=== PATIENT | male | born 1965 | race Caucasian/White ===

== ENCOUNTER 2022-10-02 07:29 | Emergency (ER) | payer BC, OTHER, SELFPAY ==
--- NOTE | ~2022-10-02 | CT_ITS ---
EXAMINATION: CT abdomen pelvis w con INDICATION: Abdominal pain TECHNIQUE: Computed tomographic images of the abdomen and pelvis were obtained after the administrati on of 100 cc of Omnipaque 350 intravenous contrast. The dose-length product (DLP) was 928.93 mGy-cm. Automated exposure control and iterative reconstruction technique were employed. COMPARISON: 01/15/2011 FINDINGS: The lung bases are clear. The heart size is normal. The liver is diffusely low in attenuati on when compared with the spleen, consistent with hepatic steatosis. The spleen, pancreas, gallbladde r, and adrenal glands are normal. Hypoattenuating lesions in the left kidney measuring up to 5 mm are too small to characterize but likely represent cysts. The right kidney is unremarkable. No pathologi marlene enlarged abdominal or pelvic lymph nodes are identified. There is formed stool in the terminal ileum. There is a short segment of mildly dilated distal ileum. The remainder of the distal ileum is upper limits of normal in caliber. There is a small amount of fluid in the adjacent mesentery. There is no free intraperitoneal gas. There is a fat-containing left inguinal hernia. There is mild lumbar spondylosis. IMPRESSION: 1. Form stool in the terminal ileum with mild distention of a short segment of distal ileum and remai nder of the distal ileum upper limits of normal in caliber. Finding could reflect ileus. Reviewed, dictated and finalized at location B. RN IMPRESSION: 1. Form stool in the terminal ileum with mild distention of a short segment of distal ileum and remainder of the distal ileum upper limits of normal in calibe r. Finding could reflect ileus.
[2022-10-02 07:29] VITALS: BP 101/65; PULSE 83; RESP 16; TEMP 37; O2SAT 98
--- NOTE | 2022-10-02 07:46 | ED.GENADULT ---
HPI - General Adult General Chief complaint: Abdominal Pain Stated complaint: abdominal pain History of Present Illness HPI narrative: Rio is a 56M with a PMH of HLD and HTN presented to the ED with abdominal pain that started yesterday and has become worse. It is a generalized cramping pain around the umbilicus. He had 2 solid BM today. No diarrhea, nausea, vomiting, chest pain, dyspnea, fevers or chills. 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 Related Data Home Medications Medication Instructions Recorded Confirmed losartan 100 mg tablet 100 mg DAILY 10/02/22 10/02/22 Allergies Allergy/AdvReac Type Severity Reaction Status Date / Time No Known Allergies Allergy Mild Verified 10/02/22 07:44 Review of Systems Review of Systems: All systems reviewed & are unremarkable except as noted in HPI and below Exam Const: General: healthy appearing and no acute distress Nutritional Appearance: well nourished Orientation/consciousness: patient oriented x3 HENMT: Head: normal to inspection Ears: external ears normal Face/Nose/Sinus: Normal external nose present Eyes: Conjunctivae: conjunctivae normal Pupils: Equal, round and reactive pupils present EOM: EOMs intact bilaterally Neck: Neck: normal visual inspection Chest: Chest palpation & inspection: normal inspection of the chest Resp: Effort & Inspection: normal respiratory effort Auscultation: clear to auscultation bilaterally Cardio: Rate: regular rate Rhythm: regular rhythm GI: Inspection: non-distended GI Palp: Yes Soft to palpation, Yes Tenderness to palpation present (GI) (TtP in the right upper quadrant ) and No Guarding due to palpation present (GI) Auscultation: normal bowel sounds Skin: General skin exam: normal color Rashes: no rashes Neuro: General: patient oriented x3 and moves all extremities Cranial nerves: Yes Nystagmus not present Extrem: General: normal to inspection Psych: Mental Status: mental status grossly normal Course Course Emergency Course: Ordered fluids, morphine, labs EXAMINATION: CT abdomen pelvis w con INDICATION: Abdominal pain TECHNIQUE: Computed tomographic images of the abdomen and pelvis were obtained after the administration of 100 cc of Omnipaque 350 intravenous contrast. The dose-length product (DLP) was 928.93 mGy-cm. Automated exposure control and iterative reconstruction technique were employed. COMPARISON: 01/15/2011 FINDINGS: The lung bases are clear. The heart size is normal. The liver is diffusely low in attenuation when compared with the spleen, consistent with hepatic steatosis. The spleen, pancreas, gallbladder, and adrenal glands are normal. Hypoattenuating lesions in the left kidney measuring up to 5 mm are too small to characterize but likely represent cysts. The right kidney is unremarkable. No pathologically enlarged abdominal or pelvic lymph nodes are identified. There is formed stool in the terminal ileum. There is a short segment of mildly dilated distal ileum. The remainder of the distal ileum is upper limits of normal in caliber. There is a small amount of fluid in the adjacent mesentery. There is no free intraperitoneal gas. There is a fat-containing left inguinal hernia. There is mild lumbar spondylosis. IMPRESSION: 1. Form stool in the terminal ileum with mild distention of a short segment of distal ileum and remainder of the distal ileum upper limits of normal in caliber. Finding could reflect ileus. Given reglan. Discussed return precautions including worsening pain, N/V, fevers chills etc. Vital Signs Vital signs: Vital Signs Temperature 98.6 F 10/02/22 07:29 Pulse Rate 83 10/02/22 07:29 Respiratory Rate 16 10/02/22 07:29 Blood Pressure 101/65 10/02/22 07:29 Pulse Oximetry 98 10/02/22 07:29 Oxygen Delivery Room Air 10/02/22 07:29 Temperature 98.6 F 10/02/22 07:29 Pulse Rate 83 10/02/22 07:29 Respiratory Rate 16 0
[2022-10-02 08:14] LABS: Basophils Absolute Auto 0.05 K/mm3 (0.00-0.10); Basophils Percent Auto 0.5 % (0.0-1.0); Eosinophils Absolute Auto 0.12 K/mm3 (0.02-0.50); Eosinophils Percent Auto 1.2 % (1.0-6.0); Hematocrit 47.5 % (40.0-54.0); Hemoglobin 16.5 g/dL (14.0-18.0); Immature Granulocyte Absolute 0.04 K/mm3 (0.00-0.00); Immature Granulocyte Percent A 0.4 % (0.0-0.0); Lymphocytes Percent Auto 17.2 % (18.0-42.0); Mean Corpuscular HGB Conc 34.7 g/dL (32.0-36.0); Mean Corpuscular Hemoglobin 30.3 pg (27.0-31.0); Mean Corpuscular Volume 87.2 fL (78.0-102.0); Mean Platelet Volume 10.2 fl (8.7-11.0); Monocytes Absolute Auto 0.64 K/mm3 (0.10-0.90); Monocytes Percent Auto 6.5 % (2.0-11.0); Neutrophils Absolute Auto 7.3 K/mm3 (1.7-7.2); Neutrophils Percent Auto 74.2 % (50.0-70.0); Platelet Count Result 186 K/mm3 (150-420); Red Blood Count 5.45 M/mm3 (4.70-6.10); Red Cell Distribution Width 11.9 % (11.6-14.4); White Blood Count 9.9 K/mm3 (4.8-10.8)
[2022-10-02 08:16] LABS: Add Urine Microscopic? YES; Appearance Urine Clear (Clear); Bilirubin Urine Negative (Negative); Blood Urine Negative (Negative); Color Urine Light Yellow (Yellow); Glucose Urine UA 3+ (Negative); Ketones Urine Negative (Negative); Leukocyte Esterase Ur Negative LEU/UL (Negative); Nitrate Urine Negative (Negative); Protein Urine Negative (Negative); Specific Grav Ur 1.015 (1.010-1.020); pH Urine 6.5 (5.0-8.0)
[2022-10-02] MEDS: ACETAMINOPHEN 500 MG TABLET 1000 MG PO (08:18)
[2022-10-02] MEDS: LACTATED RINGERS 1,000 ML 999 ML IV CONT (08:18)
[2022-10-02 08:25] LABS: Bacteria Urine None seen /hpf; RBC Urine None seen /hpf (0-2); WBC Urine None seen /hpf (0-3)
[2022-10-02 08:30] VITALS: BP 115/82; PULSE 72; RESP 18; O2SAT 96
[2022-10-02 08:33] LABS: Alanine Aminotransferase 59 U/L (16-63); Albumin Level 4.5 g/dL (3.4-5.0); Alkaline Phosphatase 73 U/L (46-116); Anion Gap 10 mmol/L (8-16); Aspartate Amino Transferase 25 U/L (15-37); Bilirubin,Total 0.8 mg/dL (0.00-1.00); Blood Urea Nitrogen 19 mg/dL (7-18); Carbon Dioxide 25 mmol/L (21-32); Chloride 98 mmol/L (98-108); Estimated CRCL calculation 81 ml/min; Estimated Glomerular Filt Rate > 60; Glucose 309 mg/dL (70-99); Lipase 37 U/L (16-77); Osmolality Calculated 290 mOsm/kg (285-295); Potassium 3.9 mmol/L (3.5-5.1); Sodium 133 mmol/L (136-145); Total Protein 7.9 g/dL (6.4-8.2)
[2022-10-02 08:36] LABS: Lactic Acid Reflex 1.4 mmol/L (0.4-2.0)
[2022-10-02 08:40] LABS: Prothrombin Time 10.9 Seconds (9.50-12.10)
[2022-10-02 09:30] VITALS: BP 118/84; RESP 18; O2SAT 96
[2022-10-02] MEDS: METOCLOPRAMIDE HCL INJ 10 MG/2 ML VIAL IV PUSH (09:52)
--- NOTE | 2022-10-02 09:56 | PC.NURSE ---
Pt states pain is better without movement, states if he pushes on his abdomen it gets worse, pain only 3/10 at this time, pt resting on stretcher.
[2022-10-02 10:35] VITALS: BP 138/89; PULSE 112; RESP 16; TEMP 36.8; O2SAT 98
== END 2022-10-02 10:41 | disposition home or self-care (01) ==
PROVIDERS: Emergency Provider Family Medicine
DX: R10.9 Unspecified abdominal pain (principal); K40.90 Unilateral inguinal hernia, without obstruction or gangrene, not specified as recurrent; R73.9 Hyperglycemia, unspecified; I10 Essential (primary) hypertension
CPT/HCPCS: 36415; 74177; 80053; 81001; 83605; 83690; 85025; 85610; 96361; 96374; 99284; J2765; J7120; Q9967

== ENCOUNTER 2025-03-08 07:30 | Observation (INO) | payer BC, OTHER, SELFPAY ==
[2025-03-08] VITALS (9 sets, daily range): BP systolic 115–123; BP diastolic 65–99; PULSE 72–93; RESP 15–20; TEMP 36.3–36.6; O2SAT 96–100; BMI 27.6
--- NOTE | ~2025-03-08 | CT_ITS ---
CT of the Abdomen and Pelvis: Indication: Abdominal pain Technique: 2.5 mm axial scans were obtained through the abdomen and pelvis following intravenous adm inistration of 100 cc of Omnipaque 350. Dose reduction technique was used on this scan by utilizing a utomated exposure control and iterative reconstruction technique. The dose-length product (DLP) was 4 67.95 mGy-cm. COMPARISON: 10/02/2022 Findings: Scans through the lung bases are unremarkable. The liver, spleen, pancreas, gallbladder, adrenals and kidneys are within normal limits. No evidence of aortic aneurysm. No lymphadenopathy. No bowel obstruction or bowel wall thickening. There is no evidence to suggest acute appendicitis. Images through the pelvis were performed. Urinary bladder unremarkable. No pelvic mass seen. No ascit es. Impression: No significant abnormalities seen. Reviewed, dictated and finalized at [facility]. Impression: No significant abnormalities seen.
--- OUTSIDE RECORDS SUMMARY | 2025-03-08 07:33 | XMS_ITS | Encounter Summary ---
Author Name [facility] [place] Address [address] [place] [address] Care Team Providers Care Charging Operator Name Role Phone SONALI SAMUELS Primary Care Provider Unavail able Insurance Providers: All historical and current Section Date Range: From patient's date of to the date document was created. This section includes the names of all active insurance providers for the patient. Insurance Provider Type of Coverage Plan Name Start of Policy Coverage End of Policy Coverage Group Number Member ID Insurance Provider's Telephone Number Policy Tan's Name Patient's Relationship to Policy Tan [employer] [place] PREFERRED PROVIDER ORGANIZAT [place]ON (PPO) [facility] ERS Jun 22, 2006 [id number] [phone] MARYELLEN ROBERTSON PATIENT [employer] [place] PREFERRED PROVIDER ORGANIZAT ION (PPO) [facility] E[facility] Jun 22, 2006 [id number] [phone] MARYELLEN ROBERTSON PATIENT [employer] [place] PREFERRED PROVIDER ORGANIZAT ION (PPO) [facility] PAINT Jun 22, 2006 [id number] [phone] MARYELLEN ROBERTSON PATIENT [employer] [place] PREFERRED PROVIDER ORGANIZAT ION (PPO) [place] Jun 22, 2006 [id number] [phone] MARYELLEN ROBERTSON PATIENT [place] PREFERRED PROVIDER [place]GANIZ[place] Jun 22, 2006 [id number] [phone] MARYELLEN ROBERTSON PATIENT [facility] [employer] PRES[employer] I[employer] RX PLAN Sep 22, 2018 [facility] [id number] [phone] MARYELLEN ROBERTSON PATIENT [employer] RX PLAN Sep 22, 2018 [id number] [phone] MARYELLEN ROBERTSON Octavio PATIENT Selected Encounter This section includes the information on record at [place] for the Encounter. Date/Time Encounter Type Encounter Description Reason Pro vider Source May 05, 2024 10:45 AM Outpatient Encounter GENERAL INTERNAL MEDICINE [facility] Encounter Template Text not used by [place] Plan of Treatment: Future Appointments (+ 6 months) and Future Tests (+/- 45 days) The Plan of Treatment section includes future care activities for the patient from all [place] treatmentfacilities. This section includes future appointments and future orders which are active, pending or scheduled. Future Appointments This section includes appointments that were scheduled to occur 6 months from the date of the Encounter, up to a maximum of 20 appointments. The data comes from all [place] treatment facilities. Appointment Date/Time Appointment Type Appointme nt Facility Name May 12, 2024 10:20 AM AMBULATORY - NONE [facility] Jun 21, 2024 11:00 AM AM[facility]UL[facility]ORY - MEDICINE [facility] Jul 28, 2024 10:30 AM AMBULATORY - MEDICINE [facility] Aug 09, 2024 11:00 AM AM[facility]UL[facility]ORY - [facility] Aug 24, 2024 09:00 AM [facility]ORY [facility]RY [facility] Oct 04, 2024 09:00 AM AM[facility]ATORY - [facility]RY [facility] Oct 14, 2024 09:00 AM [facility]ATORY - [facility]RY [facility] Oct 21, 2024 09:00 AM [facility]ORY - [facility]RY [facility] Active, Pending, and Scheduled Orders This section includes a listing of several types of active, pending, and scheduled orders, including clinic medications orders, diagnostic test orders, procedure orders and consult orders; where the start date of the order is 45 days before the date of the Encounter or 45 days after the date of theEncounter. The data comes from all [place] treatment facilities. Test Date/Time Test Type Test Details Facility Name May 05, 2024 05:01 PM Consult Order [facility] DENTAL SPEC Cons Extractor Filler's Choice [facility] Jun 10, 2024 12:00 AM Laboratory - Chemi stry Order [id number] BLOOD SP [facility] Jun 10, 2024 12:00 AM Laboratory - Chemi stry Order BASIC METABOLIC PANEL GREEN LI/HEP BLD/PLAS PLASMA SP [facility] Encounter Notes: All associated encounter notes This section contains the clinical notes associated to the Encounter. Date/Time Encounter Note(s) Provider Source May 05, 2024 10:45 AM NONVA NOTE: LOCAL TITLE: [facility]ITY [facility]-CARE COORDINATION PLAN NOTE [address] TITLE: NONVA NOTE DATE OF NOTE: MAY 05, 2024@10:45 ENTRY DATE: MAY 05, 2024@10:45:17 AUTHOR: DON KNAPP EXP COSIGNER: URGENCY: STATUS: COMPLETED [place] called to see if a referral was entered for Glendy montez after his most recent appt 04/28 @0900. Word Processing Operator advised there is not. stated Glendy moapa sent an email & D[facility] team confirmed that they will submit it & the the [place] [facility] clinic will have to review and either approve or deny, if approved we complete the consult and send to [facility] provider. he can call back on Friday for an update. Caller stated understanding. /lolita/ DON KNAPP [employer]VANCED FITNESS AND WELLNESS INSTRUCTOR Signed: 05/05/2024 11:24 DON KNAPP [facility]
--- OUTSIDE RECORDS SUMMARY | 2025-03-08 07:33 | XMS_ITS | Continuity of Care Document ---
Author Name [facility] Organization [facility] Care Team Providers Care Senior Research Engineer Name Role Phone [facility] Unavailable Unavailable Problems Combined list of problems from Department of Defense and [facility] Affairs facilities. It does not include entries that were removed or entered in error. Problem Status Onset Date Problem Type Date of Resolution Comments Source Binge drinker Active Condition [facility] Dermatitis * (ICD-9-CM 692.9) Active Condition [facility] Diabetes Mellitus Type 2 ([facility] [id number]) Active Condition [facility] Exposure to potentially hazardous substance Active Condition [facility] HTN - Hypertension ([facility] [id number]) Active Condition [facility] Hyperlipidemia Active Condition [facility] Impaired Fasting Glucose ([facility] [id number]) Active Condition [facility] Insomnia Active Condition [facility] Knee pain Active Condition [facility] Liver Function Tests Abnormal ([facility] [id number]) Active Condition [facility] Low back pain Active Condition [facility] Marital problems Active Condition [facility] Sleep apnea Active Condition [facility] Hyperglycemia Inactive Condition 10/06/2019 [facility] Hypertension Inactive Condition 10/06/2019 [facility] Low Back Pain * (ICD-9-CM 724.2) Inactive Condition 10/06/2019 [facility] Obesity Inactive Condition 10/06/2019 [facility] Pain in Joint, site unspecified (ICD-9-CM 719.40) Inactive Condition 10/06/2019 [facility] Diagnosis: ICD-10-CM Z63.0 Problems in relationship with spouse or partner Active Diagnosis [facility] Diagnosis: ICD-10-CM F32.A Depression, unspecified Active Diagnosis [facility] Diagnosis: ICD-10-CM F33.1 Major depressive disorder, recurrent, moderate Active Diagnosis [facility] Diagnosis: ICD-10-CM I10 Essential (primary) hypertension Active Diagnosis [facility] Diagnosis: ICD-10-CM E11.9 Type 2 diabetes mellitus without complications Active Diagnosis [facility] Diagnosis: ICD-10-CM H04.123 Dry eye syndrome of bilateral lacrimal glands Active Diagnosis [facility] Diagnosis: ICD-10-CM Z01.20 Encounter for dental exam and cleaning w/o abnormal findings Active Diagnosis [facility] Diagnosis: ICD-10-CM Z13.5 Encounter for screening for eye and ear disorders Active Diagnosis [facility] Medications Combined list of outpatient medications from Department of Defense and [facility] Affairs facilities.Medications provided include 1) outpatient medications from the last 15 months, and 2) patient-reported medications. Medication Details Route Status Patient Instructions Prescription Expires Prescription Number Last Dispense Date Ordering Provider Order Date Order Qty Source amLODIPine (U/D) 10 MG ORAL TAB TAKE ONE TABLET BY MOUTH ONCE A DAY FOR HEART/BL OOD PRESSURE 02/03/2025 [id number] 4 MARC GONZALEZ 2023 90 [facility] AMLODIPINE BESYLATE 10MG TAB TAKE ONE TABLET BY MOUTH ONCE A DAY FOR HEART/BL OOD PRESSURE ORAL ACTIVE 04/10/2025 [id number] 5 MARC GONZALEZ 2024 90 [facility] AMLODIPINE BESYLATE 10MG TAB TAKE ONE TABLET BY MOUTH ONCE A DAY FOR HEART/BL OOD PRESSURE ORAL DISCONT INUED 11/01/2024 [id number] 4 MARC GONZALEZ 2023 90 [facility] AMLODIPINE BESYLATE 10MG TAB TAKE ONE TABLET BY MOUTH ONCE A DAY FOR HEART/BL OOD PRESSURE ORAL DISCONT INUED 02/03/2025 [id number] 4 MARC GONZALEZ 2023 90 [facility] AMLODIPINE BESYLATE 10MG TAB TAKE ONE TABLET BY MOUTH ONCE A DAY FOR HEART/BL OOD PRESSURE ORAL DISCONT INUED 09/08/2024 [id number] 4 MARC GONZALEZ 2022 90 [facility] ASPIRIN 81MG TAB,EC TAKE ONE TABLET BY MOUTH ONCE A DAY ORAL ACTIVE MARC GONZALEZ 2020 [facility] carboxymeth ylcel 0.5% EYE DROP [2 X15ML] INSTILL 1 DROP IN BOTH EYES FOUR TIMES A DAY NEEDED Active 03/12/2025 [id number] 4 BHASKAR ALANIZ [facility] 2023 45 [facility] CARBOXYMETH YLCELLULOSE NA 0.5% SOLN,OPH INSTILL 1 DROP IN BOTH EYES FOUR TIMES A DAY NEEDED OPHTHA LMIC ACTIVE 03/12/2025 [id number] 5 CANDI ALANIZ [facility] 2024 30 [facility] CARBOXYMETH YLCELLULOSE NA 0.5% SOLN,OPH INSTILL 1 DROP IN BOTH EYES FOUR TIMES A DAY NEEDED OPHTHA LMIC DISCONT INUED 03/12/2025 [id number] 5 CANDI ALANIZ [facility] 2023 30 [facility] CARBOXYMETH YLCELLULOSE NA 0.5% SOLN,OPH INSTILL 1 DROP IN BOTH EYES FOUR TIMES A DAY NEEDED OPHTHA LMIC DISCONT INUED 03/12/2025 [id number] 4 CANDI ALANIZ [facility] 2023 45 [facility] EMPAGLIFLOZ IN 25MG TAB TAKE ONE-HALF TABLET BY MOUTH ONCE A DAY FOR DIABETES ORAL ACTIVE 12/14/2025 [id number] 5 MARC GONZALEZ 2024 30 [facility] EMPAGLIFLOZ IN 25MG TAB TAKE ONE-HALF TABLET BY MOUTH ONCE A DAY FOR DIABETES ORAL DISCONT INUED 09/04/2025 [id number] 5 MARC GONZALEZ 2023 30 [facility] EMPAGLIFLOZ IN 25MG TAB TAKE ONE-HALF TABLET BY MOUTH ONCE A DAY FOR DIABETES ORAL DISCONT INUED 05/05/2025 [id number] 4 Yazan TELLO E 2023 30 [facility] EMPAGLIFLOZ IN 25MG TAB TAKE ONE-HALF TABLET BY MOUTH ONCE A DAY FOR DIABETES ORAL DISCONT INUED (EDIT) 04/07/2025 [id number] 4 Yazan TELLO E 2023 15 [facility] EPINEPHRINE (EQV-ADRENA CLICK) 0.3MG/0.3ML INJECTOR INJECT 1 PEN (0.3MG/0 .3ML) INTRAMUS CULARLY ONE-TIME FOR ALLERGIC REACTION INTRAM USCULA R 02/03/2025 [id number] 4 [facility] Epinephrine 1mg/mL, Injection, 0.3 mL Auto-Inject or INJECT 1 PEN (0.3MG/0 .3ML) INTRAMUS CULARLY ONE-TIME FOR ALLERGIC REACTION 02/03/2025 [id number] 4 MARC GONZALEZ 2023 2 [facility] FISH OIL 1000MG (500MG DHA/EPA) CAP,ORAL TAKE 1 CAPSULE BY MOUTH ONCE A DAY ORAL ACTIVE GUERDA MÉNDEZ 2023 [facility] Hydrochloro thiazide 12.5mg + Losartan 100mg, Tablet, Oral TAKE 1 TABLET BY MOUTH EVERY MORNING TO LOWER BLOOD PRESSURE 09/08/2024 [id number] 4 MARC GONZALEZ 2023 90 [facility] HYDROCHLORO THIAZIDE 12.5MG/LOSA RTAN POTASSIUM 100MG TAB TAKE 1 TABLET BY MOUTH EVERY MORNING TO LOWER BLOOD PRESSURE ORAL ACTIVE 10/26/2025 [id number] 5 MARC GONZALEZ 2024 90 [facility] HYDROCHLORO THIAZIDE 12.5MG/LOSA RTAN POTASSIUM 100MG TAB TAKE 1 TABLET BY MOUTH EVERY MORNING TO LOWER BLOOD PRESSURE ORAL DISCONT INUED 10/26/2025 [id number] 5 MARC GONZALEZ 2024 90 [facility] HYDROCHLORO THIAZIDE 12.5MG/LOSA RTAN POTASSIUM 100MG TAB TAKE 1 TABLET BY MOUTH EVERY MORNING TO LOWER BLOOD PRESSURE ORAL DISCONT INUED 09/08/2024 [id number] 4 MARC GONZALEZ 2023 90 [facility] METFORMIN HCL 1000MG TAB TAKE ONE TABLET BY MOUTH TWICE A DAY TAKE WITH FOOD. AVOID ALCOHOL. DISCONTI NUE BEFORE GETTING XRAY DYE. ORAL ACTIVE 01/05/2026 [id number] 5 MARC GONZALEZ 2024 180 [facility] METFORMIN HCL 1000MG TAB TAKE ONE TABLET BY MOUTH TWICE A DAY TAKE WITH FOOD. AVOID ALCOHOL. DISCONTI NUE BEFORE GETTING XRAY DYE. ORAL DISCONT INUED 07/28/2025 [id number] 5 MARC GONZALEZ 2023 180 [facility] METFORMIN HCL 1000MG TAB TAKE ONE TABLET BY MOUTH TWICE A DAY TAKE WITH FOOD. AVOID ALCOHOL. DISCONTI NUE BEFORE GETTING XRAY DYE. ORAL DISCONT INUED 02/03/2025 [id number] 4 MARC GONZALEZ 2023 180 [facility] METFORMIN HCL 1000MG TAB TAKE ONE-HALF TABLET BY MOUTH EVERY MORNING AND TAKE ONE TABLET EVERY EVENING FOR DIABETES TAKE WITH FOOD. AVOID ALCOHOL. DISCONTI NUE BEFORE GETTING XRAY DYE. ORAL DISCONT INUED (EDIT) 12/17/2024 [id number] 4 MARC GONZALEZ 2023 135 [facility] METFORMIN HCL 1000MG TAB TAKE ONE-HALF TABLET BY MOUTH EVERY MORNING AND TAKE ONE TABLET EVERY EVENING FOR DIABETES TAKE WITH FOOD. AVOID ALCOHOL. DISCONTI NUE BEFORE GETTING XRAY DYE. ORAL DISCONT INUED 12/17/2024 [id number] 4 MARC GONZALEZ 2023 135 [facility] Metformin Hydrochlori de Tablet Extended Release 1,000 mg Oral TAKE ONE TABLET BY MOUTH TWICE A DAY TAKE WITH FOOD. AVOID ALCOHOL. DISCONTI NUE BEFORE GETTING XRAY DYE. 02/03/2025 [id number] 4 MARC GONZALEZ 2023 180 [facility] calista Metformin Hydrochlori de Tablet Extended Release 1,000 mg Oral TAKE ONE-HALF TABLET BY MOUTH EVERY MORNING AND TAKE ONE TABLET EVERY EVENING FOR DIABETES TAKE WITH FOOD. AVOID ALCOHOL. DISCONTI NUE BEFORE GETTING XRAY DYE. Discont inued 12/17/2024 [id number] 4 MARC GONZALEZ 2023 135 [facility] calista Metformin Hydrochlori de Tablet Extended Release 1,000 mg Oral TAKE ONE-HALF TABLET BY MOUTH EVERY MORNING AND TAKE ONE TABLET EVERY EVENING FOR DIABETES TAKE WITH FOOD. AVOID ALCOHOL. DISCONTI NUE BEFORE GETTING XRAY DYE. 12/17/2024 [id number] 4 MARC GONZALEZ 2023 135 [facility] Metformin Hydrochlori de Tablet Extended Release 1,000 mg Oral TAKE ONE-HALF TABLET BY MOUTH EVERY MORNING AND TAKE ONE TABLET EVERY EVENING FOR DIABETES TAKE WITH FOOD. AVOID ALCOHOL. DISCONTI NUE BEFORE GETTING XRAY DYE. Discont inued 12/17/2024 [id number] 4 MARC GONZALEZ 2023 135 [facility] calista Metformin Hydrochlori de Tablet Extended Release 1,000 mg Oral TAKE ONE-HALF TABLET BY MOUTH EVERY MORNING AND TAKE ONE TABLET EVERY EVENING FOR DIABETES TAKE WITH FOOD. AVOID ALCOHOL. DISCONTI NUE BEFORE GETTING XRAY DYE. 12/17/2024 [id number] 4 MARC GONZALEZ 2023 135 [facility] calista MULTIVITAMI NS CAP/TAB TAKE ONE TABLET BY MOUTH ONCE A DAY ORAL ACTIVE GUERDA MÉNDEZ 2023 [facility] PRAVASTATIN 40 MG ORAL TAB TAKE ONE-HALF TABLET BY MOUTH EVERY EVENING TO LOWER CHOLESTE ROL 02/03/2025 [id number] 4 MARC GONZALEZ 2023 45 [facility] n PRAVASTATIN NA 40MG TAB TAKE ONE-HALF TABLET BY MOUTH EVERY EVENING TO LOWER CHOLESTE ROL ORAL ACTIVE 05/05/2025 [id number] 5 MARC GONZALEZ 2024 45 [facility] PRAVASTATIN NA 40MG TAB TAKE ONE-HALF TABLET BY MOUTH EVERY EVENING TO LOWER CHOLESTE ROL ORAL DISCONT INUED 02/07/2025 [id number] 5 MARC GONZALEZ 2024 45 [facility] PRAVASTATIN NA 40MG TAB TAKE ONE-HALF TABLET BY MOUTH EVERY EVENING TO LOWER CHOLESTE ROL ORAL DISCONT INUED 11/13/2024 [id number] 4 MARC GONZALEZ 2023 45 [facility] PRAVASTATIN NA 40MG TAB TAKE ONE-HALF TABLET BY MOUTH EVERY EVENING TO LOWER CHOLESTE ROL ORAL DISCONT INUED 02/03/2025 [id number] 4 MARC GONZALEZ 2023 45 [facility] PRAVASTATIN NA 40MG TAB TAKE ONE-HALF TABLET BY MOUTH EVERY EVENING TO LOWER CHOLESTE ROL ORAL DISCONT INUED 09/08/2024 [id number] 4 MARC GONZALEZ 2023 45 [facility] Allergies, Adverse Reactions, Alerts Combined list of allergies from Department of [facility] and [facility] facilities. It does not include entries that were removed or entered in error. Substance Category Reaction Severity Reaction type Status Date Reported Comments Source ATORVASTATIN Drug allergy (disorder) Myalgias active [address] [facility] ATORVASTATIN Propensity to adverse reactions to drug (finding) Muscle pain active 9 [facility] BEE STINGS Propensity to adverse reaction (finding) active 7 [facility] Immunizations Combined list of available immunizations from the Department of [facility] and [facility] facilities. 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 of [facility] and [facility], ranging from 15 months to all on record, depending upon the facility. Order Name Results Value Reference Range Date Interpretation Specimen Comments Source MICRAL/CR EAT PROFILE (STL) ALBUMIN [MASS/VOLUM E] IN URINE 21 mg/L 08/06 Specimen Type: URINE No comment entered. Ordering Provider: ALDEN MÉNDEZ Report Released Date/Time: Jul 28, 2024 11:25 AM Reporting Lab: [facility] [place] [phone] Performing Lab: [facility] DIVISION MICRAL/CR EAT PROFILE (STL) ALBUMIN/CRE ATININE [MASS RATIO] IN URINE 17 mg/g 0 - 29 08/06 Specimen Type: URINE No comment entered. Ordering Provider: ALDEN MÉNDEZ Report Released Date/Time: Jul 28, 2024 11:25 AM Reporting Lab: [facility] [place] [id number] Performing Lab: [facility] DIVISION MICRAL/CR EAT PROFILE (STL) CREATININE [MASS/VOLUM E] IN URINE 121.5 mg/dL 63.0 - 166.0 08/06 Specimen Type: URINE No comment entered. Ordering Provider: ALDEN MÉNDEZ Report Released Date/Time: Jul 28, 2024 11:25 AM Reporting Lab: [facility] [place] [address] Performing Lab: [facility] DIVISION B12 COBALAMIN (VITAMIN B12) [MASS/VOLUM E] IN SERUM OR PLASMA 467 pg/mL 213 - 816 08/06 Specimen Type: SERUM No comment entered. Ordering Provider: ALDEN MÉNDEZ Report Released Date/Time: Jul 28, 2024 10:46 AM Reporting Lab: [facility] [place] [address] Performing Lab: [facility] DIVISION FERRITIN FERRITIN [MASS/VOLUM E] IN SERUM OR PLASMA 40.52 ng/mL 22 - 275 08/06 Specimen Type: SERUM No comment entered. Ordering Provider: ALDEN MÉNDEZ Report Released Date/Time: Jul 28, 2024 11:05 AM Reporting Lab: [facility] [address] [facility] [phone] Performing Lab: [facility] [address] [place] [phone] [facility] IRON/TIBC PROFILE IRON BINDING CAPACITY [MASS/VOLUM E] IN SERUM OR PLASMA 449 ug/dL 250 - 450 08/06 Specimen Type: SERUM No comment entered. Ordering Provider: ALDEN MÉNDEZ Report Released Date/Time: Jul 28, 2024 11:05 AM Reporting Lab: [address] [phone] Performing Lab: [address] [phone] [facility] IRON/TIBC PROFILE TRANSFERRIN [MASS/VOLUM E] IN SERUM OR PLASMA 359 mg/dL 163 - 344 08/06 H Specimen Type: SERUM No comment entered. Ordering Provider: ALDEN MÉNDEZ Report Released Date/Time: Jul 28, 2024 11:05 AM Reporting Lab: [address] [phone] Performing Lab: [address] [phone] [facility] IRON/TIBC PROFILE IRON SATURATION [MASS FRACTION] IN SERUM OR PLASMA 33 20 - 50 08/06 Specimen Type: SERUM No comment entered. Ordering Provider: ALDEN MÉNDEZ Report Released Date/Time: Jul 28, 2024 11:05 AM Reporting Lab: [place] [address] [facility] [phone] Performing Lab: [address] [address] [facility] IRON/TIBC PROFILE IRON [MASS/VOLUM E] IN SERUM OR PLASMA 148 ug/dL 65 - 175 08/06 Specimen Type: SERUM No comment entered. Ordering Provider: ALDEN MÉNDEZ Report Released Date/Time: Jul 28, 2024 11:05 AM Reporting Lab: [facility] [address] [facility] [phone] Performing Lab: [facility] [address] [place] [id number] TSH W/ REFLEX FT4 (STL) THYROTROPIN [UNITS/VOLU ME] IN SERUM OR PLASMA 0.286 u[IU]/ mL 0.470 - 5.000 08/06 L Specimen Type: PLASMA No comment entered. Ordering Provider: ALDEN MÉNDEZ Report Released Date/Time: Jul 28, 2024 10:46 AM Reporting Lab: [facility] [place] [address] Performing Lab: [facility] DIVISION TSH W/ REFLEX FT4 (STL) FREE T4(REFLEX) 1.09 ng/mL 0.70 - 1.48 08/06 Specimen Type: PLASMA No comment entered. Ordering Provider: ALDEN MÉNDEZ Report Released Date/Time: Jul 28, 2024 10:46 AM Reporting Lab: [facility] [place] [address] Performing Lab: [facility] DIVISION CBC LEUKOCYTES [#/VOLUME] IN BLOOD BY AUTOMATED COUNT 5.2 10*3/u L 3.6 - 11.2 08/06 Specimen Type: BLOOD No comment entered. Ordering Provider: ALDEN MÉNDEZ Report Released Date/Time: Jul 28, 2024 11:05 AM Reporting Lab: [facility] [place] [address] Performing Lab: [facility] DIVISION CBC ERYTHROCYTE S [#/VOLUME] IN BLOOD BY AUTOMATED COUNT 5.86 10*6/u L 4.10 - 5.70 08/06 H Specimen Type: BLOOD No comment entered. Ordering Provider: ALDEN MÉNDEZ Report Released Date/Time: Jul 28, 2024 11:05 AM Reporting Lab: [facility] [place] [address] Performing Lab: [facility] CBC HEMOGLOBIN [MASS/VOLUM E] IN BLOOD 17.8 g/dL 13.1 - 16.8 08/06 H Specimen Type: BLOOD No comment entered. Ordering Provider: ALDEN MÉNDEZ Report Released Date/Time: Jul 28, 2024 11:05 AM Reporting Lab: [facility] [place] [address] Performing Lab: [facility] CBC HEMATOCRIT [VOLUME FRACTION] OF BLOOD 50.9 38.2 - 48.4 08/06 H Specimen Type: BLOOD No comment entered. Ordering Provider: ALDEN MÉNDEZ Report Released Date/Time: Jul 28, 2024 11:05 AM Reporting Lab: [facility] [place] [address] Performing Lab: [facility] CBC MCV [ENTITIC VOLUME] BY AUTOMATED COUNT 86.9 fL 80.0 - 100.0 08/06 Specimen Type: BLOOD No comment entered. Ordering Provider: ALDEN MÉNDEZ Report Released Date/Time: Jul 28, 2024 11:05 AM Reporting Lab: [facility] [place] [address] Performing Lab: [facility] CBC MCH [ENTITIC MASS] BY AUTOMATED COUNT 30.4 pg 27.0 - 34.0 08/06 Specimen Type: BLOOD No comment entered. Ordering Provider: ALDEN MÉNDEZ Report Released Date/Time: Jul 28, 2024 11:05 AM Reporting Lab: [facility] [place] [address] Performing Lab: [facility] CBC MCHC [MASS/VOLUM E] BY AUTOMATED COUNT 35.0 g/dL 33.0 - 36.0 08/06 Specimen Type: BLOOD No comment entered. Ordering Provider: ALDEN MÉNDEZ Report Released Date/Time: Jul 28, 2024 11:05 AM Reporting Lab: [facility] [place] [address] Performing Lab: [facility] CBC PLATELETS [#/VOLUME] IN BLOOD BY AUTOMATED COUNT 220 10*3/u L 150 - 400 08/06 Specimen Type: BLOOD No comment entered. Ordering Provider: ALDEN MÉNDEZ Report Released Date/Time: Jul 28, 2024 11:05 AM Reporting Lab: [facility] [place] [address] Performing Lab: [facility] CBC PLATELET MEAN VOLUME [ENTITIC VOLUME] IN BLOOD BY AUTOMATED COUNT 9.7 fL 7.5 - 11.2 08/06 Specimen Type: BLOOD No comment entered. Ordering Provider: ALDEN MÉNDEZ Report Released Date/Time: Jul 28, 2024 11:05 AM Reporting Lab: [facility] [place] [address] Performing Lab: [facility] [place] [address] [facility] CBC ERYTHROCYTE DISTRIBUTIO N WIDTH [RATIO] BY AUTOMATED COUNT 11.9 11.8 - 15.1 08/06 Specimen Type: BLOOD No comment entered. Ordering Provider: ALDEN MÉNDEZ Report Released Date/Time: Jul 28, 2024 11:05 AM Reporting Lab: [facility] [place] [address] Performing Lab: [facility] DIVISION CBC LYMPHOCYTES /100 LEUKOCYTES IN BLOOD BY AUTOMATED COUNT 37 08/06 Specimen Type: BLOOD No comment entered. Ordering Provider: ALDEN MÉNDEZ Report Released Date/Time: Jul 28, 2024 11:05 AM Reporting Lab: [facility] [place] [address] Performing Lab: [facility] DIVISION CBC MONOCYTES/1 00 LEUKOCYTES IN BLOOD BY AUTOMATED COUNT 8 08/06 Specimen Type: BLOOD No comment entered. Ordering Provider: ALDEN MÉNDEZ Report Released Date/Time: Jul 28, 2024 11:05 AM Reporting Lab: [facility] [place] [address] Performing Lab: [facility] DIVISION CBC NEUTROPHILS /100 LEUKOCYTES IN BLOOD BY AUTOMATED COUNT 51 08/06 Specimen Type: BLOOD No comment entered. Ordering Provider: ALDEN MÉNDEZ Report Released Date/Time: Jul 28, 2024 11:05 AM Reporting Lab: [facility] [place] [address] Performing Lab: [facility] DIVISION CBC EOSINOPHILS /100 LEUKOCYTES IN BLOOD BY AUTOMATED COUNT 3 08/06 Specimen Type: BLOOD No comment entered. Ordering Provider: ALDEN MÉNDEZ Report Released Date/Time: Jul 28, 2024 11:05 AM Reporting Lab: [facility] [place] [address] Performing Lab: [facility] DIVISION CBC BASOPHILS/1 00 LEUKOCYTES IN BLOOD BY AUTOMATED COUNT 1 08/06 Specimen Type: BLOOD No comment entered. Ordering Provider: ALDEN MÉNDEZ Report Released Date/Time: Jul 28, 2024 11:05 AM Reporting Lab: [facility] [place] [address] Performing Lab: [facility] DIVISION CBC LYMPHOCYTES [#/VOLUME] IN BLOOD BY AUTOMATED COUNT 1.92 10*3/u L 0.77 - 4.50 08/06 Specimen Type: BLOOD No comment entered. Ordering Provider: ALDEN MÉNDEZ Report Released Date/Time: Jul 28, 2024 11:05 AM Reporting Lab: [facility] [place] [address] Performing Lab: [facility] DIVISION CBC MONOCYTES [#/VOLUME] IN BLOOD BY AUTOMATED COUNT 0.43 10*3/u L 0.19 - 0.80 08/06 Specimen Type: BLOOD No comment entered. Ordering Provider: ALDEN MÉNDEZ Report Released Date/Time: Jul 28, 2024 11:05 AM Reporting Lab: [facility] [place] [address] Performing Lab: [facility] DIVISION CBC NEUTROPHILS [#/VOLUME] IN BLOOD BY AUTOMATED COUNT 2.67 10*3/u L 2.10 - 8.00 08/06 Specimen Type: BLOOD No comment entered. Ordering Provider: ALDEN MÉNDEZ Report Released Date/Time: Jul 28, 2024 11:05 AM Reporting Lab: [facility] [place] [address] Performing Lab: [facility] CBC EOSINOPHILS [#/VOLUME] IN BLOOD BY AUTOMATED COUNT 0.16 10*3/u L 0.00 - 0.60 08/06 Specimen Type: BLOOD No comment entered. Ordering Provider: ALDEN MÉNDEZ Report Released Date/Time: Jul 28, 2024 11:05 AM Reporting Lab: [facility] [place] [id number] Performing Lab: [facility] [address] CBC BASOPHILS [#/VOLUME] IN BLOOD BY AUTOMATED COUNT 0.05 10*3/u L 0.00 - 0.20 08/06 Specimen Type: BLOOD No comment entered. Ordering Provider: ALDEN MÉNDEZ Report Released Date/Time: Jul 28, 2024 11:05 AM Reporting Lab: [facility] [place] [address] Performing Lab: [address] TESTOSTER ONE, FREE PANEL TESTOSTERON E [MASS/VOLUM E] IN SERUM OR PLASMA 547 ng/dL 250 - 1100 08/06 Specimen Type: SERUM Comment: For additional information , please refer to http://educ ation.Intiza .com/faq/ TotalTestos teroneLCMSM [id number] (This link is being provided for information al/ educational purposes only.) This test was developed and its analytical performance characteris tics have been determined by [employer] [place], [place]. It has not been cleared or approved by the U.S. Food and Drug Administrat ion. This assay has been validated pursuant to the CLIA regulations and is used for clinical purposes. Test Performed by [facility] [place], [address] [place] [address] Luis Miguel Ng M.D., Ph.D., Director of Laboratorie s , CLIA [id number] Ordering Provider: ALDEN MÉNDEZ Report Released Date/Time: Jul 28, 2024 10:46 AM Reporting Lab: [address] [address] Performing Lab: [address] [facility] TESTOSTER ONE, FREE PANEL ALBUMIN [MASS/VOLUM E] IN SERUM OR PLASMA 5.0 g/dL 3.6 - 5.1 08/06 Specimen Type: SERUM Comment: For additional information , please refer to http://educ ation.Intiza .Evoleen/faq/ TotalTestos teroneLCMSM [id number] (This link is being provided for information al/ educational purposes only.) This test was developed and its analytical performance characteris tics have been determined by [employer] [place], [place]. It has not been cleared or approved by the U.S. Food and Drug Administrat ion. This assay has been validated pursuant to the CLIA regulations and is used for clinical purposes. Test Performed by [facility] [employer] [place], [address] [place] [address] Luis Miguel Ng M.D., Ph.D., Director of Laboratorie s , CLIA [id number] Ordering Provider: ALDEN MÉNDEZ Report Released Date/Time: Jul 28, 2024 10:46 AM Reporting Lab: [address] [address] Performing Lab: [address] [facility] TESTOSTER ONE, FREE PANEL TESTOSTERON E FREE [MOLES/VOLU ME] IN SERUM OR PLASMA 74.3 pg/mL 46.0 - 224.0 08/06 Specimen Type: SERUM Comment: For additional information , please refer to http://educ Luminary Micro/faq/ TotalTestos teroneLCMSM [id number] (This link is being provided for information al/ educational purposes only.) This test was developed and its analytical performance characteris tics have been determined by [employer] [place], [place]. It has not been cleared or approved by the U.S. Food and Drug Administrat ion. This assay has been validated pursuant to the CLIA regulations and is used for clinical purposes. Test Performed by [employer] [employer], [address] [place] [address] Luis Miguel Ng M.D., Ph.D., Director of Laboratorie s , CLIA [id number] Ordering Provider: ALDEN MÉNDEZ Report Released Date/Time: Jul 28, 2024 10:46 AM Reporting Lab: [facility] [address] [facility] [address] Performing Lab: [facility] [address] [place] [address] [facility] TESTOSTER ONE, FREE PANEL TESTOSTERON E.FREE+WEAK LY BOUND [MASS/VOLUM E] IN SERUM OR PLASMA 168.9 ng/dL 110.0 - 575.0 08/06 Specimen Type: SERUM Comment: For additional information , please refer to http://educ Campus Job .Evoleen/faq/ TotalTestos teroneLCMSM [id number] (This link is being provided for information al/ educational purposes only.) This test was developed and its analytical performance characteris tics have been determined by [employer] [place], [place]. It has not been cleared or approved by the U.S. Food and Drug Administrat kapturem. This assay has been validated pursuant to the CLIA regulations and is used for clinical purposes. Test Performed by [employer] [employer], [address] [place], [place] Luis Miguel Ng M.D., Ph.D., Director of Laboratorie s , CLIA [id number] Ordering Provider: ALDEN MÉNDEZ Report Released Date/Time: Jul 28, 2024 10:46 AM Reporting Lab: [address] [address] Performing Lab: [address] [facility] TESTOSTER ONE, FREE PANEL SEX HORMONE BINDING GLOBULIN [MOLES/VOLU ME] IN SERUM OR PLASMA 32 nmol/L 22 - 77 08/06 Specimen Type: SERUM Comment: For additional information , please refer to http://educ ation.Intiza .com/faq/ TotalTestos teroneLCMSM [id number] (This link is being provided for information al/ educational purposes only.) This test was developed and its analytical performance characteris tics have been determined by [employer] [place], [place]. It has not been cleared or approved by the U.S. Food and Drug Administrat ion. This assay has been validated pursuant to the CLIA regulations and is used for clinical purposes. Test Performed by [facility], [facility], [address] [place] [address] Luis Miguel Ng M.D., Ph.D., Director of Laboratorie s , CLIA [id number] Ordering Provider: ALDEN MÉNDEZ Report Released Date/Time: Jul 28, 2024 10:46 AM Reporting Lab: [address] [address] Performing Lab: [address] [facility] HGA1C HEMOGLOBIN A1C/HEMOGLO BIN.TOTAL IN BLOOD 5.9 4.0 - 6.0 07/27 Specimen Type: BLOOD No comment entered. Ordering Provider: RITESH TELLO Report Released Date/Time: Jul 27, 2024 08:35 AM Reporting Lab: [facility] [place] [address] Performing Lab: [facility] BASIC METABOLIC PANEL CREATININE [MASS/VOLUM E] IN SERUM OR PLASMA 0.86 mg/dL 0.70 - 1.30 07/27 Specimen Type: PLASMA Comment: No hemolysis noted. Ordering Provider: RITESH TELLO E Report Released Date/Time: Jul 27, 2024 08:35 AM Reporting Lab: [facility] [place] [address] Performing Lab: [facility] [address] BASIC METABOLIC PANEL UREA NITROGEN [MASS/VOLUM E] IN SERUM OR PLASMA 12.5 mg/dL 9.0 - 25.0 07/27 Specimen Type: PLASMA Comment: No hemolysis noted. Ordering Provider: RITESH TELLO Report Released Date/Time: Jul 27, 2024 08:35 AM Reporting Lab: [facility] [place] [address] Performing Lab: [facility] [address] BASIC METABOLIC PANEL GLUCOSE [MASS/VOLUM E] IN SERUM OR PLASMA 107 mg/dL 72 - 99 07/27 H Specimen Type: PLASMA Comment: No hemolysis noted. Ordering Provider: RITESH TELLO Report Released Date/Time: Jul 27, 2024 08:35 AM Reporting Lab: [facility] [place] [address] Performing Lab: [facility] [address] BASIC METABOLIC PANEL SODIUM [MOLES/VOLU ME] IN SERUM OR PLASMA 137 meq/L 136 - 145 07/27 Specimen Type: PLASMA Comment: No hemolysis noted. Ordering Provider: BREUNIG,RITESH IE E Report Released Date/Time: Jul 27, 2024 08:35 AM Reporting Lab: [facility] [place] [address] Performing Lab: [facility] [address] [facility] BASIC METABOLIC PANEL POTASSIUM [MOLES/VOLU ME] IN SERUM OR PLASMA 4.3 meq/L 3.5 - 5.0 07/27 Specimen Type: PLASMA Comment: No hemolysis noted. Ordering Provider: RITESH TELLO Report Released Date/Time: Jul 27, 2024 08:35 AM Reporting Lab: [facility] [place] [address] Performing Lab: [facility] [address] BASIC METABOLIC PANEL CHLORIDE [MOLES/VOLU ME] IN SERUM OR PLASMA 105 meq/L 98 - 107 07/27 Specimen Type: PLASMA Comment: No hemolysis noted. Ordering Provider: RITESH TELLO Report Released Date/Time: Jul 27, 2024 08:35 AM Reporting Lab: [facility] [place] [address] Performing Lab: [facility] [address] BASIC METABOLIC PANEL CARBON DIOXIDE, TOTAL [MOLES/VOLU ME] IN SERUM OR PLASMA 22 meq/L 22 - 31 07/27 Specimen Type: PLASMA Comment: No hemolysis noted. Ordering Provider: RITESH TELLO Report Released Date/Time: Jul 27, 2024 08:35 AM Reporting Lab: [facility] [place] [address] Performing Lab: [facility] [address] [facility] BASIC METABOLIC PANEL CALCIUM [MASS/VOLUM E] IN SERUM OR PLASMA 10.3 mg/dL 8.4 - 10.4 07/27 Specimen Type: PLASMA Comment: No hemolysis noted. Ordering Provider: RITESH TELLO Report Released Date/Time: Jul 27, 2024 08:35 AM Reporting Lab: [facility] [place] [address] Performing Lab: [facility] [address] BASIC METABOLIC PANEL GLOMERULAR FILTRATION RATE/1.73 SQ M.PREDICTED [VOLUME RATE/AREA] IN SERUM, PLASMA OR BLOOD BY CREATININE- BASED FORMULA (CKD-EPI 2020) 100.99 60 07/27 Specimen Type: PLASMA Comment: No hemolysis noted. Ordering Provider: RITESH TELLO Report Released Date/Time: Jul 27, 2024 08:35 AM Reporting Lab: [facility] [place] [address] Performing Lab: [facility] [address] LIPID PANEL (STL) CHOLESTEROL [MASS/VOLUM E] IN SERUM OR PLASMA 166 mg/dL 0 - 200 02/02 Specimen Type: PLASMA Comment: No hemolysis noted. Ordering Provider: Uzma GONZALEZ Report Released Date/Time: February 03, 2024 10:09 AM Reporting Lab: [facility] [place] [address] Performing Lab: [facility] [address] LIPID PANEL (STL) TRIGLYCERID E [MASS/VOLUM E] IN SERUM OR PLASMA 120 mg/dL 0 - 150 02/02 Specimen Type: PLASMA Comment: No hemolysis noted. Ordering Provider: Uzma GONZALEZ Report Released Date/Time: February 03, 2024 10:09 AM Reporting Lab: [facility] [place] [address] Performing Lab: [facility] [facility] [address] [facility] LIPID PANEL (STL) CHOLESTEROL IN LDL [MASS/VOLUM E] IN SERUM OR PLASMA BY CALCULATION 91 mg/dL 02/02 Specimen Type: PLASMA Comment: No hemolysis noted. Ordering Provider: Uzma GONZALEZ Report Released Date/Time: February 03, 2024 10:09 AM Reporting Lab: [facility] [address] Performing Lab: [facility] [facility] [id number] LIPID PANEL (STL) CHOLESTEROL IN HDL [MASS/VOLUM E] IN SERUM OR PLASMA 51 mg/dL 40 02/02 Specimen Type: PLASMA Comment: No hemolysis noted. Ordering Provider: Uzma GONZALEZ Report Released Date/Time: February 03, 2024 10:09 AM Reporting Lab: [facility] [facility] [address] Performing Lab: [facility] [phone] [place] [address] Encounters Combined list of: 1) Encounters from Department of [facility] facilities going backup to the last 18 months, not all [place] inpatient encounters are included; 2) Encounters from the Department of [facility] facilities going backup to 280 months. Location Location Details Encounter Type Encounter Number Reason For Visit Attending Provider ADM Date DC Date Status Disposition Source [facility] Outpatient Encounter [id number] DAVID DIAZ 12/25 [facility] Outpatient Encounter [id number] 12/25 [facility] Outpatient Encounter [id number] DEVI ROMERO 02/01 [facility] Outpatient Encounter [id number] 02/02 [facility] IMG RTA DETCJ/MNTR DS STAFF [id number] Diagnos is: ICD-10- CM Z13.5 Encount er for screeni ng for eye and ear disorde rs ANN RAZA 02/02 [facility] OFFICE O/P EST MOD 30 MIN [id number] Diagnos is: ICD-10- CM E11.9 Type 2 diabete s mellitu s without complic ations MARC GONZALEZ 02/02 [facility] Outpatient Encounter [id number] Diagnos is: ICD-10- CM Z13.5 Encount er for screeni ng for eye and ear disorde Uzma Carrera 02/02 [facility] DENTAL BITEWING FOUR IMAGES [id number] Diagnos is: ICD-10- CM Z01.20 Encount er for dental exam and cleanin g w/o abnorma l finding s ALEKSANDAR RANDALL 02/08 [facility] MTMS BY PHARM EST 15 MIN [id number] Diagnos is: ICD-10- CM E11.9 Type 2 diabete s mellitu s without complic ations MARVA TELLO E 03/02 [facility] INTRM OPH EXAM EST PATIENT [id number] Diagnos is: ICD-10- CM H04.123 Dry eye syndrom e of bilater al lacrima l glands AMADEO ALANIZ THI 03/11 [facility] MTMS BY PHARM EST 15 MIN [id number] Diagnos is: ICD-10- CM E11.9 Type 2 diabete s mellitu s without complic ations MARVA TELLO TIE E 04/06 [facility] Outpatient Encounter [id number] 04/07 [facility] Outpatient Encounter [id number] AMADEO ALANIZ [facility] 04/09 [facility] Outpatient Encounter [id number] 04/28 [facility] MTMS BY PHARM EST 15 MIN [id number] Diagnos is: ICD-10- CM E11.9 Type 2 diabete s mellitu s without complic ations MARVA TELLO TIE E 05/04 [facility] Outpatient Encounter [id number] 05/05 [facility] Outpatient Encounter [id number] 05/05 [facility] Outpatient Encounter [id number] 05/14 [facility] MTMS BY PHARM EST 15 MIN [id number] Diagnos is: ICD-10- CM E11.9 Type 2 diabete s mellitu s without complic ations MARVA TELLO TIE E 06/21 [facility] Outpatient Encounter [id number] 06/24 [facility] Outpatient Encounter [id number] 07/28 [facility] Outpatient Encounter [id number] Diagnos is: ICD-10- CM I10 Essenti al (primar y) hyperte nsion FAB MÉNDEZ D 07/28 [facility] PSYTX W PT 30 MINUTES [id number] Diagnos is: ICD-10- CM Z63.0 Problem s in relatio nship with spouse or partner MARIEJOHN WILKINS TAUURS E 08/09 [facility] PSYTX W PT 60 MINUTES [id number] Diagnos is: ICD-10- CM F33.1 Major depress akhil disorde r, recurre nt, moderat e MEGHAN MILLIGAN M 08/24 [facility] Outpatient Encounter [id number] MEGHAN MILLIGAN M 08/24 [facility] PSYTX W PT 60 MINUTES [id number] Diagnos is: ICD-10- CM Z63.0 Problem s in relatio nship with spouse or partner MEGHAN MILLIGAN M 10/04 [facility] PSYTX W PT 60 MINUTES [id number] Diagnos is: ICD-10- CM F32.A Depress ion, MEGHAN Olvera 10/14 [facility] PSYTX W PT 60 MINUTES [id number] Diagnos is: ICD-10- CM F32.A Depress ion, MEGHAN Olvera 10/21 [facility] Outpatient Encounter [id number] 11/05 [facility] PSYTX W PT 60 MINUTES [id number] Diagnos is: ICD-10- CM F32.A Depress ionarlene JE NNIFER M 11/12 [facility] Outpatient Encounter [id number] 11/17 [facility] Outpatient Encounter [id number] 11/18 [facility] Outpatient Encounter [id number] 11/19 [facility] PSYTX W PT 30 MINUTES [id number] Diagnos is: ICD-10- CM F32.A Depress ionarlene JE NNIFER M 11/25 [facility] PSYTX W PT 30 MINUTES [id number] Diagnos is: ICD-10- CM F32.A Depress ionarlene JE NNIFER M 12/09 [facility] Outpatient Encounter [id number] 12/20 [facility] PSYTX W PT 60 MINUTES [id number] Diagnos is: ICD-10- CM Z63.0 Problem s in relatio nship with spouse or partner MEGHAN MILLIGAN M 01/03 [facility] Outpatient Encounter [id number] 02/01 [facility] Outpatient Encounter [id number] YULIANA TORRES S 02/04 [facility] Outpatient Encounter [id number] MEGHAN MILLIGAN M 02/08 [facility] Outpatient Encounter [id number] 02/18 [facility] Outpatient Encounter [id number] 02[facility]24 [facility] Procedures Combined list of: 1) Procedures from Department of Veterans Affairs facilities going back up to thelast 18 months, not all VA non-surgical procedures are included; 2) All procedures from the Department of Defense facilities. Procedure Procedure Type Code Date Perfomer Comments Anastacio montiel AUDIOMETRIC TESTING OF GROUPS 11/30/2002 [facility] DETERMINATION OF REFRACTIVE STATE 11/10/2002 [facility] Social History Combined list of available smoking, tobacco, and other social history from Department of Defense and Veterans Affairs facilities. Social History Type Response Date Comment Anastacio montiel Tobacco smoking status SCIS VA-TOBACCO USE WI 30 MIN OF WAKEUP 02/03/2024 [facility] History of tobacco use VA-TOBACCO USE 30 YEARS OR MORE 02/03/2024 [facility] History of tobacco use VA-TOBACCO USER E VERY DAY 10/11/2022 [facility] History of tobacco use VA-TOBACCO USER E VERY DAY 03/12/2021 [facility] History of tobacco use VA-TOBACCO USE CO UNSEL NO 10/06/2019 [facility] History of tobacco use VA-TOBACCO USER E VERY DAY 08/24/2018 [facility] History of tobacco use TOBACCO USER OFFE RED MEDS 08/04/2017 [facility] History of tobacco use CURRENT TOBACCO USER 04/16/2017 [facility] This section is an empty social history section. [facility] Plan of Care List of future care activities from Department of Veterans Affairs facilities. Additional future care activities may be listed in the Assessment and Plan section. Date/Time Care Activity Care Activity Detail Facili ty 02/25/2025 Consult Order [facility] Cons Director Of [employer]'s Choice [facility]
[2025-03-08 07:54] LABS: Basophils Absolute Auto 0.1 K/mm3 (0.0-0.1); Basophils Percent Auto 0.7 % (0.2-1.2); Eosinophils Absolute Auto 0.2 K/mm3 (0-0.3); Hematocrit 41.6 % (42.0-52.0); Hemoglobin 14.1 g/dL (14.0-18.0); Immature Granulocyte Absolute 0.04 K/mm3 (0.00-0.031); Immature Granulocyte Percent A 0.4 % (0-0.5); Lymphocytes Absolute Auto 3.69 K/mm3 (0.9-3.2); Lymphocytes Percent Auto 35.2 % (18.3-44.2); Mean Corpuscular HGB Conc 33.9 g/dl (32-36); Mean Corpuscular Hemoglobin 29.6 pg (26-34); Mean Corpuscular Volume 87.4 fl (80-100); Mean Platelet Volume 10.1 fl (7.4-10.4); Monocytes Absolute Auto 0.9 K/mm3 (0.1-0.6); Monocytes Percent Auto 8.8 % (2.6-8.5); Neutrophils Absolute Auto 5.6 K/mm3 (1.3-6.7); Neutrophils Percent Auto 52.9 % (45.5-73.1); Platelet Count Result 234 k/mm3 (150-375); Red Blood Count 4.76 M/mm3 (4.6-6.20); Red Cell Distribution Width 12.4 % (11.5-14.5); White Blood Count 10.5 K/mm3 (4.5-10.0)
--- OUTSIDE RECORDS SUMMARY | 2025-03-08 07:58 | XMS_ITS | Continuity of Care Document ---
Author Name [facility] Organization [facility] Care Team Providers Care Clinical Staff Anesthesiologist Name Role Phone [facility] Unavailable Unavailable Problems Combined list of problems from Department of Defense and [facility] Affairs facilities. It does not include entries that were removed or entered in error. Problem Status Onset Date Problem Type Date of Resolution Comments Source Binge drinker Active Condition [facility] Dermatitis * (ICD-9-CM 692.9) Active Condition [facility] Diabetes Mellitus Type 2 ([facility] [id number]) Active Condition [facility] Exposure to potentially hazardous substance Active Condition [facility] HTN - Hypertension ([facility] [id number]) Active Condition [facility] Hyperlipidemia Active Condition [facility] Impaired Fasting Glucose ([facility] [id number]) Active Condition [facility] Insomnia Active Condition [facility] Knee pain Active Condition [facility] Liver Function Tests Abnormal ([facility] [id number]) Active Condition [facility] Low back pain Active Condition [facility] Marital problems Active Condition [facility] Sleep apnea Active Condition [facility] Hyperglycemia Inactive Condition 10/06/2019 [facility] Hypertension Inactive Condition 10/06/2019 [facility] Low Back Pain * (ICD-9-CM 724.2) Inactive Condition 10/06/2019 [facility] Obesity Inactive Condition 10/06/2019 [facility] Pain in Joint, site unspecified (ICD-9-CM 719.40) Inactive Condition 10/06/2019 [facility] Diagnosis: ICD-10-CM Z63.0 Problems in relationship with spouse or partner Active Diagnosis [facility] Diagnosis: ICD-10-CM F32.A Depression, unspecified Active Diagnosis [facility] Diagnosis: ICD-10-CM F33.1 Major depressive disorder, recurrent, moderate Active Diagnosis [facility] Diagnosis: ICD-10-CM I10 Essential (primary) hypertension Active Diagnosis [facility] Diagnosis: ICD-10-CM E11.9 Type 2 diabetes mellitus without complications Active Diagnosis [facility] Diagnosis: ICD-10-CM H04.123 Dry eye syndrome of bilateral lacrimal glands Active Diagnosis [facility] Diagnosis: ICD-10-CM Z01.20 Encounter for dental exam and cleaning w/o abnormal findings Active Diagnosis [facility] Diagnosis: ICD-10-CM Z13.5 Encounter for screening for eye and ear disorders Active Diagnosis [facility] Medications Combined list of outpatient medications from Department of Defense and [facility] Affairs facilities.Medications provided include 1) outpatient medications from the last 15 months, and 2) patient-reported medications. Medication Details Route Status Patient Instructions Prescription Expires Prescription Number Last Dispense Date Ordering Provider Order Date Order Qty Source amLODIPine (U/D) 10 MG ORAL TAB TAKE ONE TABLET BY MOUTH ONCE A DAY FOR HEART/BL OOD PRESSURE 02/03/2025 [id number] 4 MARC GONZALEZ [address] [facility] AMLODIPINE BESYLATE 10MG TAB TAKE ONE TABLET BY MOUTH ONCE A DAY FOR HEART/BL OOD PRESSURE ORAL ACTIVE 04/10/2025 [id number] 5 MARC GONZALEZ 2024 90 [facility] AMLODIPINE BESYLATE 10MG TAB TAKE ONE TABLET BY MOUTH ONCE A DAY FOR HEART/BL OOD PRESSURE ORAL DISCONT INUED 11/01/2024 [id number] 4 MARC GONZALEZ 2023 90 [facility] AMLODIPINE BESYLATE 10MG TAB TAKE ONE TABLET BY MOUTH ONCE A DAY FOR HEART/BL OOD PRESSURE ORAL DISCONT INUED 02/03/2025 [id number] 4 MARC GONZALEZ 2023 90 [facility] AMLODIPINE BESYLATE 10MG TAB TAKE ONE TABLET BY MOUTH ONCE A DAY FOR HEART/BL OOD PRESSURE ORAL DISCONT INUED 09/08/2024 [id number] 4 MARC GONZALEZ 2022 90 [facility] ASPIRIN 81MG TAB,EC TAKE ONE TABLET BY MOUTH ONCE A DAY ORAL ACTIVE MARC GONZALEZ 2020 [facility] carboxymeth ylcel 0.5% EYE DROP [2 X15ML] INSTILL 1 DROP IN BOTH EYES FOUR TIMES A DAY NEEDED Active 03/12/2025 [id number] 4 BHASKAR ALANIZ [facility] [address] [facility] [address] [facility] CARBOXYMETH YLCELLULOSE NA 0.5% SOLN,OPH INSTILL 1 DROP IN BOTH EYES FOUR TIMES A DAY NEEDED OPHTHA LMIC ACTIVE 03/12/2025 [id number] 5 CANDI ALANIZ [facility] 2024 30 [facility] CARBOXYMETH YLCELLULOSE NA 0.5% SOLN,OPH INSTILL 1 DROP IN BOTH EYES FOUR TIMES A DAY NEEDED OPHTHA LMIC DISCONT INUED 03/12/2025 [id number] 5 CANDI ALANIZ [facility] 2023 30 [facility] CARBOXYMETH YLCELLULOSE NA 0.5% SOLN,OPH INSTILL 1 DROP IN BOTH EYES FOUR TIMES A DAY NEEDED OPHTHA LMIC DISCONT INUED 03/12/2025 [id number] 4 CANDI ALANIZ [facility] 2023 45 [facility] EMPAGLIFLOZ IN 25MG TAB TAKE ONE-HALF TABLET BY MOUTH ONCE A DAY FOR DIABETES ORAL ACTIVE 12/14/2025 [id number] 5 MARC GONZALEZ 2024 30 [facility] EMPAGLIFLOZ IN 25MG TAB TAKE ONE-HALF TABLET BY MOUTH ONCE A DAY FOR DIABETES ORAL DISCONT INUED 09/04/2025 [id number] 5 MARC GONZALEZ 2023 30 [facility] EMPAGLIFLOZ IN 25MG TAB TAKE ONE-HALF TABLET BY MOUTH ONCE A DAY FOR DIABETES ORAL DISCONT INUED 05/05/2025 [id number] 4 Yazan TELLO E 2023 30 [facility] EMPAGLIFLOZ IN 25MG TAB TAKE ONE-HALF TABLET BY MOUTH ONCE A DAY FOR DIABETES ORAL DISCONT INUED (EDIT) 04/07/2025 [id number] 4 Yazan TELLO E 2023 15 [facility] EPINEPHRINE (EQV-ADRENA CLICK) 0.3MG/0.3ML INJECTOR INJECT 1 PEN (0.3MG/0 .3ML) INTRAMUS CULARLY ONE-TIME FOR ALLERGIC REACTION INTRAM USCULA R 02/03/2025 [id number] 4 [facility] Epine[facility] 1mg/mL, Injection, 0.3 mL Auto-Inject or INJECT 1 PEN (0.3MG/0 .3ML) INTRAMUS CULARLY ONE-TIME FOR ALLERGIC REACTION 02/03/2025 [id number] 4 MARC GONZALEZ [address] [facility] FISH OIL 1000MG (500MG DHA/EPA) CAP,ORAL TAKE 1 CAPSULE BY MOUTH ONCE A DAY ORAL ACTIVE GUERDA MÉNDEZ 2023 [facility] Hydrochloro thiazide 12.5mg + Losartan 100mg, Tablet, Oral TAKE 1 TABLET BY MOUTH EVERY MORNING TO LOWER BLOOD PRESSURE 09/08/2024 [id number] 4 MARC GONZALEZ [address] [facility] HYDROCHLORO THIAZIDE 12.5MG/LOSA RTAN POTASSIUM 100MG TAB TAKE 1 TABLET BY MOUTH EVERY MORNING TO LOWER BLOOD PRESSURE ORAL ACTIVE 10/26/2025 [id number] 5 MARC GONZALEZ 2024 90 [facility] HYDROCHLORO THIAZIDE 12.5MG/LOSA RTAN POTASSIUM 100MG TAB TAKE 1 TABLET BY MOUTH EVERY MORNING TO LOWER BLOOD PRESSURE ORAL DISCONT INUED 10/26/2025 [id number] 5 MARC GONZALEZ 2024 90 [facility] HYDROCHLORO THIAZIDE 12.5MG/LOSA RTAN POTASSIUM 100MG TAB TAKE 1 TABLET BY MOUTH EVERY MORNING TO LOWER BLOOD PRESSURE ORAL DISCONT INUED 09/08/2024 [id number] 4 MARC GONZALEZ 2023 90 [facility] METFORMIN HCL 1000MG TAB TAKE ONE TABLET BY MOUTH TWICE A DAY TAKE WITH FOOD. AVOID ALCOHOL. DISCONTI NUE BEFORE GETTING XRAY DYE. ORAL ACTIVE 01/05/2026 [id number] 5 MARC GONZALEZ 2024 180 [facility] METFORMIN HCL 1000MG TAB TAKE ONE TABLET BY MOUTH TWICE A DAY TAKE WITH FOOD. AVOID ALCOHOL. DISCONTI NUE BEFORE GETTING XRAY DYE. ORAL DISCONT INUED 07/28/2025 [id number] 5 MARC GONZALEZ 2023 180 [facility] METFORMIN HCL 1000MG TAB TAKE ONE TABLET BY MOUTH TWICE A DAY TAKE WITH FOOD. AVOID ALCOHOL. DISCONTI NUE BEFORE GETTING XRAY DYE. ORAL DISCONT INUED 02/03/2025 [id number] 4 MARC GONZALEZ 2023 180 [facility] METFORMIN HCL 1000MG TAB TAKE ONE-HALF TABLET BY MOUTH EVERY MORNING AND TAKE ONE TABLET EVERY EVENING FOR DIABETES TAKE WITH FOOD. AVOID ALCOHOL. DISCONTI NUE BEFORE GETTING XRAY DYE. ORAL DISCONT INUED (EDIT) 12/17/2024 [id number] 4 MARC GONZALEZ 2023 135 [facility] METFORMIN HCL 1000MG TAB TAKE ONE-HALF TABLET BY MOUTH EVERY MORNING AND TAKE ONE TABLET EVERY EVENING FOR DIABETES TAKE WITH FOOD. AVOID ALCOHOL. DISCONTI NUE BEFORE GETTING XRAY DYE. ORAL DISCONT INUED 12/17/2024 [id number] 4 MARC GONZALEZ 2023 135 [facility] Metformin Hydrochlori de Tablet Extended Release 1,000 mg Oral TAKE ONE TABLET BY MOUTH TWICE A DAY TAKE WITH FOOD. AVOID ALCOHOL. DISCONTI NUE BEFORE GETTING XRAY DYE. 02/03/2025 [id number] 4 MARC GONZALEZ [address] [facility] [address]ista Metformin Hydrochlori de Tablet Extended Release 1,000 mg Oral TAKE ONE-HALF TABLET BY MOUTH EVERY MORNING AND TAKE ONE TABLET EVERY EVENING FOR DIABETES TAKE WITH FOOD. AVOID ALCOHOL. DISCONTI NUE BEFORE GETTING XRAY DYE. Discont inued 12/17/2024 [id number] 4 MARC GONZALEZ [address] [facility] [address] calista Metformin Hydrochlori de Tablet Extended Release 1,000 mg Oral TAKE ONE-HALF TABLET BY MOUTH EVERY MORNING AND TAKE ONE TABLET EVERY EVENING FOR DIABETES TAKE WITH FOOD. AVOID ALCOHOL. DISCONTI NUE BEFORE GETTING XRAY DYE. 12/17/2024 [id number] 4 MARC GONZALEZ [address] [facility] Metformin Hydrochlori de Tablet Extended Release 1,000 mg Oral TAKE ONE-HALF TABLET BY MOUTH EVERY MORNING AND TAKE ONE TABLET EVERY EVENING FOR DIABETES TAKE WITH FOOD. AVOID ALCOHOL. DISCONTI NUE BEFORE GETTING XRAY DYE. Discont inued 12/17/2024 [id number] 4 MARC GONZALEZ 2023 135 [facility] calista Metformin Hydrochlori de Tablet Extended Release 1,000 mg Oral TAKE ONE-HALF TABLET BY MOUTH EVERY MORNING AND TAKE ONE TABLET EVERY EVENING FOR DIABETES TAKE WITH FOOD. AVOID ALCOHOL. DISCONTI NUE BEFORE GETTING XRAY DYE. 12/17/2024 [id number] 4 MARC GONZALEZ 2023 135 [facility] calista MULTIVITAMI NS CAP/TAB TAKE ONE TABLET BY MOUTH ONCE A DAY ORAL ACTIVE GUERDA MÉNDEZ 2023 [facility] PRAVASTATIN 40 MG ORAL TAB TAKE ONE-HALF TABLET BY MOUTH EVERY EVENING TO LOWER CHOLESTE ROL 02/03/2025 [id number] 4 MARC GONZALEZ 2023 45 [facility] n PRAVASTATIN NA 40MG TAB TAKE ONE-HALF TABLET BY MOUTH EVERY EVENING TO LOWER CHOLESTE ROL ORAL ACTIVE 05/05/2025 [id number] 5 MARC GONZALEZ 2024 45 [facility] PRAVASTATIN NA 40MG TAB TAKE ONE-HALF TABLET BY MOUTH EVERY EVENING TO LOWER CHOLESTE ROL ORAL DISCONT INUED 02/07/2025 [id number] 5 MARC GONZALEZ 2024 45 [facility] N PRAVASTATIN NA 40MG TAB TAKE ONE-HALF TABLET BY MOUTH EVERY EVENING TO LOWER CHOLESTE ROL ORAL DISCONT INUED 11/13/2024 [id number] 4 MARC GONZALEZ 2023 45 [facility] PRAVASTATIN NA 40MG TAB TAKE ONE-HALF TABLET BY MOUTH EVERY EVENING TO LOWER CHOLESTE ROL ORAL DISCONT INUED 02/03/2025 [id number] 4 MARC GONZALEZ 2023 45 [facility] PRAVASTATIN NA 40MG TAB TAKE ONE-HALF TABLET BY MOUTH EVERY EVENING TO LOWER CHOLESTE ROL ORAL DISCONT INUED 09/08/2024 [id number] 4 MARC GONZALEZ 2023 45 [facility] Allergies, Adverse Reactions, Alerts Combined list of allergies from Department of [facility] and [facility] facilities. It does not include entries that were removed or entered in error. Substance Category Reaction Severity Reaction type Status Date Reported Comments Source ATORVASTATIN Drug allergy (disorder) Myalgias active 9 [facility] ATORVASTATIN Propensity to adverse reactions to drug (finding) Muscle pain active 9 [facility] BEE STINGS Propensity to adverse reaction (finding) active 7 [facility] Immunizations Combined list of available immunizations from the Department of [facility] and [facility] facilities. 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 COVID-19 (PFIZER), MRNA, LNP-S, PF, 30 MCG/0.3 ML DOSE 1 2020 208 complet ed HISTORICA L INFORMATI ON - SOURCE UNSPECIFI ED, [facility] N TDAP 2016 115 complet ed Right Deltoid [facility] Results Combined list of recent chemistry, hematology and other laboratory results from [facility] and [facility], ranging from 15 months to all on record, depending upon the facility. Order Name Results Value Reference Range Date Interpretation Specimen Comments Source MICRAL/CR EAT PROFILE (STL) ALBUMIN [MASS/VOLUM E] IN URINE 21 mg/L 08/06 Specimen Type: URINE No comment entered. Ordering Provider: ALDEN MÉNDEZ Report Released Date/Time: Jul 28, 2024 11:25 AM Reporting Lab: [facility] [place] [phone] Performing Lab: [facility] DIVISION MICRAL/CR EAT PROFILE (STL) ALBUMIN/CRE ATININE [MASS RATIO] IN URINE 17 mg/g 0 - 29 08/06 Specimen Type: URINE No comment entered. Ordering Provider: ALDEN MÉNDEZ Report Released Date/Time: Jul 28, 2024 11:25 AM Reporting Lab: [facility] [place] [address] Performing Lab: [facility] DIVISION MICRAL/CR EAT PROFILE (STL) CREATININE [MASS/VOLUM E] IN URINE 121.5 mg/dL 63.0 - 166.0 08/06 Specimen Type: URINE No comment entered. Ordering Provider: ALDEN MÉNDEZ Report Released Date/Time: Jul 28, 2024 11:25 AM Reporting Lab: [facility] [place] [address] Performing Lab: [facility] DIVISION B12 COBALAMIN (VITAMIN B12) [MASS/VOLUM E] IN SERUM OR PLASMA 467 pg/mL 213 - 816 08/06 Specimen Type: SERUM No comment entered. Ordering Provider: ALDEN MÉNDEZ Report Released Date/Time: Jul 28, 2024 10:46 AM Reporting Lab: [facility] [place] [address] Performing Lab: [facility] DIVISION FERRITIN FERRITIN [MASS/VOLUM E] IN SERUM OR PLASMA 40.52 ng/mL 22 - 275 08/06 Specimen Type: SERUM No comment entered. Ordering Provider: ALDEN MÉNDEZ Report Released Date/Time: Jul 28, 2024 11:05 AM Reporting Lab: [facility] [address] [facility] [address] Performing Lab: [facility] [address] [place] [id number] [facility] IRON/TIBC PROFILE IRON BINDING CAPACITY [MASS/VOLUM E] IN SERUM OR PLASMA 449 ug/dL 250 - 450 08/06 Specimen Type: SERUM No comment entered. Ordering Provider: ALDEN MÉNDEZ Report Released Date/Time: Jul 28, 2024 11:05 AM Reporting Lab: [address] [address] Performing Lab: [address] [address] [facility] IRON/TIBC PROFILE TRANSFERRIN [MASS/VOLUM E] IN SERUM OR PLASMA 359 mg/dL 163 - 344 08/06 H Specimen Type: SERUM No comment entered. Ordering Provider: ALDEN MÉNDEZ Report Released Date/Time: Jul 28, 2024 11:05 AM Reporting Lab: [address] [address] Performing Lab: [address] [address] [facility] IRON/TIBC PROFILE IRON SATURATION [MASS FRACTION] IN SERUM OR PLASMA 33 20 - 50 08/06 Specimen Type: SERUM No comment entered. Ordering Provider: ALDEN MÉNDEZ Report Released Date/Time: Jul 28, 2024 11:05 AM Reporting Lab: [place] [address] [facility] [address] Performing Lab: [address] [address] [facility] IRON/TIBC PROFILE IRON [MASS/VOLUM E] IN SERUM OR PLASMA 148 ug/dL 65 - 175 08/06 Specimen Type: SERUM No comment entered. Ordering Provider: ALDEN MÉNDEZ Report Released Date/Time: Jul 28, 2024 11:05 AM Reporting Lab: [facility] [address] [facility] [address] Performing Lab: [facility] [address] [facility] [address] [facility] DIV[facility] CBC LEUKOCYTES [#/VOLUME] IN BLOOD BY AUTOMATED COUNT 5.2 10*3/u L 3.6 - 11.2 08/06 Specimen Type: BLOOD No comment entered. Ordering Provider: ALDEN MÉNDEZ Report Released Date/Time: Jul 28, 2024 11:05 AM Reporting Lab: [facility] [place] [address] Performing Lab: [facility] [place] [id number] DIVISION CBC ERYTHROCYTE S [#/VOLUME] IN BLOOD BY AUTOMATED COUNT 5.86 10*6/u L 4.10 - 5.70 08/06 H Specimen Type: BLOOD No comment entered. Ordering Provider: ALDEN MÉNDEZ Report Released Date/Time: Jul 28, 2024 11:05 AM Reporting Lab: [facility] [place] [address] Performing Lab: [facility] [place] [id number] [address] DIVISION CBC HEMOGLOBIN [MASS/VOLUM E] IN BLOOD 17.8 g/dL 13.1 - 16.8 08/06 H Specimen Type: BLOOD No comment entered. Ordering Provider: ALDEN MÉNDEZ Report Released Date/Time: Jul 28, 2024 11:05 AM Reporting Lab: [facility] [place] [address] Performing Lab: [facility] [place] [id number] [place] [address] DIVISION CBC HEMATOCRIT [VOLUME FRACTION] OF BLOOD 50.9 38.2 - 48.4 08/06 H Specimen Type: BLOOD No comment entered. Ordering Provider: ALDEN MÉNDEZ Report Released Date/Time: Jul 28, 2024 11:05 AM Reporting Lab: [facility] [place] [address] Performing Lab: [facility] DIVISION CBC MCV [ENTITIC VOLUME] BY AUTOMATED COUNT 86.9 fL 80.0 - 100.0 08/06 Specimen Type: BLOOD No comment entered. Ordering Provider: ALDEN MÉNDEZ Report Released Date/Time: Jul 28, 2024 11:05 AM Reporting Lab: [facility] [place] [address] Performing Lab: [facility] DIVISION CBC MCH [ENTITIC MASS] BY AUTOMATED COUNT 30.4 pg 27.0 - 34.0 08/06 Specimen Type: BLOOD No comment entered. Ordering Provider: ALDEN MÉNDEZ Report Released Date/Time: Jul 28, 2024 11:05 AM Reporting Lab: [facility] [place] [address] Performing Lab: [facility] DIVISION CBC MCHC [MASS/VOLUM E] BY AUTOMATED COUNT 35.0 g/dL 33.0 - 36.0 08/06 Specimen Type: BLOOD No comment entered. Ordering Provider: ALDEN MÉNDEZ Report Released Date/Time: Jul 28, 2024 11:05 AM Reporting Lab: [facility] [place] [address] Performing Lab: [facility] DIVISION CBC PLATELETS [#/VOLUME] IN BLOOD BY AUTOMATED COUNT 220 10*3/u L 150 - 400 08/06 Specimen Type: BLOOD No comment entered. Ordering Provider: ALDEN MÉNDEZ Report Released Date/Time: Jul 28, 2024 11:05 AM Reporting Lab: [facility] [place] [address] Performing Lab: [facility] DIVISION CBC PLATELET MEAN VOLUME [ENTITIC VOLUME] IN BLOOD BY AUTOMATED COUNT 9.7 fL 7.5 - 11.2 08/06 Specimen Type: BLOOD No comment entered. Ordering Provider: ALDEN MÉNDEZ Report Released Date/Time: Jul 28, 2024 11:05 AM Reporting Lab: [facility] [place] [address] Performing Lab: [facility] DIVISION CBC ERYTHROCYTE DISTRIBUTIO N WIDTH [RATIO] BY AUTOMATED COUNT 11.9 11.8 - 15.1 08/06 Specimen Type: BLOOD No comment entered. Ordering Provider: ALDEN MÉNDEZ Report Released Date/Time: Jul 28, 2024 11:05 AM Reporting Lab: [facility] [place] [address] Performing Lab: [facility] DIVISION CBC LYMPHOCYTES /100 LEUKOCYTES IN BLOOD BY AUTOMATED COUNT 37 08/06 Specimen Type: BLOOD No comment entered. Ordering Provider: ALDEN MÉNDEZ Report Released Date/Time: Jul 28, 2024 11:05 AM Reporting Lab: [facility] [place] [address] Performing Lab: [facility] DIVISION CBC MONOCYTES/1 00 LEUKOCYTES IN BLOOD BY AUTOMATED COUNT 8 08/06 Specimen Type: BLOOD No comment entered. Ordering Provider: ALDEN MÉNDEZ Report Released Date/Time: Jul 28, 2024 11:05 AM Reporting Lab: [facility] [place] [address] Performing Lab: [facility] DIVISION CBC NEUTROPHILS /100 LEUKOCYTES IN BLOOD BY AUTOMATED COUNT 51 08/06 Specimen Type: BLOOD No comment entered. Ordering Provider: ALDEN MÉNDEZ Report Released Date/Time: Jul 28, 2024 11:05 AM Reporting Lab: [facility] [place] [address] Performing Lab: [facility] DIVISION CBC EOSINOPHILS /100 LEUKOCYTES IN BLOOD BY AUTOMATED COUNT 3 08/06 Specimen Type: BLOOD No comment entered. Ordering Provider: ALDEN MÉNDEZ Report Released Date/Time: Jul 28, 2024 11:05 AM Reporting Lab: [facility] [place] [address] Performing Lab: [facility] DIVISION CBC BASOPHILS/1 00 LEUKOCYTES IN BLOOD BY AUTOMATED COUNT 1 08/06 Specimen Type: BLOOD No comment entered. Ordering Provider: ALDEN MÉNDEZ Report Released Date/Time: Jul 28, 2024 11:05 AM Reporting Lab: [facility] [place] [address] Performing Lab: [facility] DIVISION CBC LYMPHOCYTES [#/VOLUME] IN BLOOD BY AUTOMATED COUNT 1.92 10*3/u L 0.77 - 4.50 08/06 Specimen Type: BLOOD No comment entered. Ordering Provider: ALDEN MÉNDEZ Report Released Date/Time: Jul 28, 2024 11:05 AM Reporting Lab: [facility] [place] [address] Performing Lab: [facility] DIVISION CBC MONOCYTES [#/VOLUME] IN BLOOD BY AUTOMATED COUNT 0.43 10*3/u L 0.19 - 0.80 08/06 Specimen Type: BLOOD No comment entered. Ordering Provider: ALDEN MÉNDEZ Report Released Date/Time: Jul 28, 2024 11:05 AM Reporting Lab: [facility] [place] [address] Performing Lab: [facility] DIVISION CBC NEUTROPHILS [#/VOLUME] IN BLOOD BY AUTOMATED COUNT 2.67 10*3/u L 2.10 - 8.00 08/06 Specimen Type: BLOOD No comment entered. Ordering Provider: ALDEN MÉNDEZ Report Released Date/Time: Jul 28, 2024 11:05 AM Reporting Lab: [facility] [place] [address] Performing Lab: [facility] DIVISION CBC EOSINOPHILS [#/VOLUME] IN BLOOD BY AUTOMATED COUNT 0.16 10*3/u L 0.00 - 0.60 08/06 Specimen Type: BLOOD No comment entered. Ordering Provider: ALDEN MÉNDEZ Report Released Date/Time: Jul 28, 2024 11:05 AM Reporting Lab: [facility] [place] [address] Performing Lab: [facility] [facility] DIVISION CBC BASOPHILS [#/VOLUME] IN BLOOD BY AUTOMATED COUNT 0.05 10*3/u L 0.00 - 0.20 08/06 Specimen Type: BLOOD No comment entered. Ordering Provider: ALDEN MÉNDEZ Report Released Date/Time: Jul 28, 2024 11:05 AM Reporting Lab: [facility] [place] [address] Performing Lab: [facility] TSH W/ REFLEX FT4 (STL) THYROTROPIN [UNITS/VOLU ME] IN SERUM OR PLASMA 0.286 u[IU]/ mL 0.470 - 5.000 08/06 L Specimen Type: PLASMA No comment entered. Ordering Provider: ALDEN MÉNDEZ Report Released Date/Time: Jul 28, 2024 10:46 AM Reporting Lab: [facility] [place] [address] Performing Lab: [facility] [address] TSH W/ REFLEX FT4 (STL) FREE T4(REFLEX) 1.09 ng/mL 0.70 - 1.48 08/06 Specimen Type: PLASMA No comment entered. Ordering Provider: ALDEN MÉNDEZ Report Released Date/Time: Jul 28, 2024 10:46 AM Reporting Lab: [facility] [place] [address] Performing Lab: [facility] [address] TESTOSTER ONE, FREE PANEL TESTOSTERON E [MASS/VOLUM E] IN SERUM OR PLASMA 547 ng/dL 250 - 1100 08/06 Specimen Type: SERUM Comment: For additional information , please refer to http://educ ation.Netadmin .com/faq/ TotalTestos teroneLCMSM [id number] (This link is being provided for information al/ educational purposes only.) This test was developed and its analytical performance characteris tics have been determined by [employer] [place], [place]. It has not been cleared or approved by the U.S. Food and Drug Administrat ion. This assay has been validated pursuant to the CLIA regulations and is used for clinical purposes. Test Performed by [facility] [place], [address] [place] [address] Luis Miguel Ng M.D., Ph.D., Director of Laboratorie s , CLIA [id number] Ordering Provider: ALDEN MÉNDEZ Report Released Date/Time: Jul 28, 2024 10:46 AM Reporting Lab: [address] [address] Performing Lab: [address] [facility] TESTOSTER ONE, FREE PANEL ALBUMIN [MASS/VOLUM E] IN SERUM OR PLASMA 5.0 g/dL 3.6 - 5.1 08/06 Specimen Type: SERUM Comment: For additional information , please refer to http://educ ation.Netadmin .OmPrompt/faq/ TotalTestos teroneLCMSM [id number] (This link is being provided for information al/ educational purposes only.) This test was developed and its analytical performance characteris tics have been determined by [employer] [place], [place]. It has not been cleared or approved by the U.S. Food and Drug Administrat ion. This assay has been validated pursuant to the CLIA regulations and is used for clinical purposes. Test Performed by [facility] [employer] [place], [address] [place] [address] Luis Miguel Ng M.D., Ph.D., Director of Laboratorie s , CLIA [id number] Ordering Provider: ALDEN MÉNDEZ Report Released Date/Time: Jul 28, 2024 10:46 AM Reporting Lab: [address] [address] Performing Lab: [address] [facility] TESTOSTER ONE, FREE PANEL TESTOSTERON E FREE [MOLES/VOLU ME] IN SERUM OR PLASMA 74.3 pg/mL 46.0 - 224.0 08/06 Specimen Type: SERUM Comment: For additional information , please refer to http://educ Contextors/faq/ TotalTestos teroneLCMSM [id number] (This link is being provided for information al/ educational purposes only.) This test was developed and its analytical performance characteris tics have been determined by [employer] [place], [place]. It has not been cleared or approved by the U.S. Food and Drug Administrat ion. This assay has been validated pursuant to the CLIA regulations and is used for clinical purposes. Test Performed by [facility], [address] [place] [address] Luis Miguel Ng M.D., Ph.D., Director of Laboratorie s , CLIA [id number] Ordering Provider: ALDEN MÉNDEZ Report Released Date/Time: Jul 28, 2024 10:46 AM Reporting Lab: [facility] [address] [facility] [address] Performing Lab: [facility] [address] [place] [address] [facility] TESTOSTER ONE, FREE PANEL TESTOSTERON E.FREE+WEAK LY BOUND [MASS/VOLUM E] IN SERUM OR PLASMA 168.9 ng/dL 110.0 - 575.0 08/06 Specimen Type: SERUM Comment: For additional information , please refer to http://educ [employer] .OmPrompt/faq/ TotalTestos teroneLCMSM [id number] (This link is being provided for information al/ educational purposes only.) This test was developed and its analytical performance characteris tics have been determined by [employer] [place], [place]. It has not been cleared or approved by the U.S. Food and Drug Administrat [employer]. This assay has been validated pursuant to the CLIA regulations and is used for clinical purposes. Test Performed by [facility], [address], [place] Luis Miguel Ng M.D., Ph.D., Director of Laboratorie s , CLIA [id number] Ordering Provider: ALDEN MÉNDEZ Report Released Date/Time: Jul 28, 2024 10:46 AM Reporting Lab: [address] [address] Performing Lab: [address] [facility] TESTOSTER ONE, FREE PANEL SEX HORMONE BINDING GLOBULIN [MOLES/VOLU ME] IN SERUM OR PLASMA 32 nmol/L 22 - 77 08/06 Specimen Type: SERUM Comment: For additional information , please refer to http://educ ation.Netadmin .com/faq/ TotalTestos teroneLCMSM [id number] (This link is being provided for information al/ educational purposes only.) This test was developed and its analytical performance characteris tics have been determined by [employer] [place], [place]. It has not been cleared or approved by the U.S. Food and Drug Administrat ion. This assay has been validated pursuant to the CLIA regulations and is used for clinical purposes. Test Performed by [facility], [facility], [address] [place] [address] Luis Miguel Ng M.D., Ph.D., Director of Laboratorie s , CLIA [id number] Ordering Provider: ALDEN MÉNDEZ Report Released Date/Time: Jul 28, 2024 10:46 AM Reporting Lab: [address] [address] Performing Lab: [address] [facility] BASIC METABOLIC PANEL CREATININE [MASS/VOLUM E] IN SERUM OR PLASMA 0.86 mg/dL 0.70 - 1.30 07/27 Specimen Type: PLASMA Comment: No hemolysis noted. Ordering Provider: RITESH TELLO Report Released Date/Time: Jul 27, 2024 08:35 AM Reporting Lab: [facility] [place] [address] Performing Lab: [facility] DIVISION BASIC METABOLIC PANEL UREA NITROGEN [MASS/VOLUM E] IN SERUM OR PLASMA 12.5 mg/dL 9.0 - 25.0 07/27 Specimen Type: PLASMA Comment: No hemolysis noted. Ordering Provider: RITESH TELLO Report Released Date/Time: Jul 27, 2024 08:35 AM Reporting Lab: [facility] [place] [address] Performing Lab: [facility] BASIC METABOLIC PANEL GLUCOSE [MASS/VOLUM E] IN SERUM OR PLASMA 107 mg/dL 72 - 99 07/27 H Specimen Type: PLASMA Comment: No hemolysis noted. Ordering Provider: RITESH TELLO Report Released Date/Time: Jul 27, 2024 08:35 AM Reporting Lab: [facility]1 [place] [address] Performing Lab: [facility] DIVISION BASIC METABOLIC PANEL SODIUM [MOLES/VOLU ME] IN SERUM OR PLASMA 137 meq/L 136 - 145 07/27 Specimen Type: PLASMA Comment: No hemolysis noted. Ordering Provider: RITESH TELLO Report Released Date/Time: Jul 27, 2024 08:35 AM Reporting Lab: [facility] [place] [address] Performing Lab: [facility] BASIC METABOLIC PANEL POTASSIUM [MOLES/VOLU ME] IN SERUM OR PLASMA 4.3 meq/L 3.5 - 5.0 07/27 Specimen Type: PLASMA Comment: No hemolysis noted. Ordering Provider: RITESH TELLO E Report Released Date/Time: Jul 27, 2024 08:35 AM Reporting Lab: [facility] [place] [address] Performing Lab: [facility] DIVISION BASIC METABOLIC PANEL CHLORIDE [MOLES/VOLU ME] IN SERUM OR PLASMA 105 meq/L 98 - 107 07/27 Specimen Type: PLASMA Comment: No hemolysis noted. Ordering Provider: RITESH TELLO E Report Released Date/Time: Jul 27, 2024 08:35 AM Reporting Lab: [facility]1 [place] [address] Performing Lab: [facility] BASIC METABOLIC PANEL CARBON DIOXIDE, TOTAL [MOLES/VOLU ME] IN SERUM OR PLASMA 22 meq/L 22 - 31 07/27 Specimen Type: PLASMA Comment: No hemolysis noted. Ordering Provider: RITESH TELLO E Report Released Date/Time: Jul 27, 2024 08:35 AM Reporting Lab: [facility]1 [place] [address] Performing Lab: [facility] BASIC METABOLIC PANEL CALCIUM [MASS/VOLUM E] IN SERUM OR PLASMA 10.3 mg/dL 8.4 - 10.4 07/27 Specimen Type: PLASMA Comment: No hemolysis noted. Ordering Provider: RITESH TELLO E Report Released Date/Time: Jul 27, 2024 08:35 AM Reporting Lab: [facility]1 [place] [address] Performing Lab: [facility] BASIC METABOLIC PANEL GLOMERULAR FILTRATION RATE/1.73 SQ M.PREDICTED [VOLUME RATE/AREA] IN SERUM, PLASMA OR BLOOD BY CREATININE- BASED FORMULA (CKD-EPI 2020) 100.99 60 07/27 Specimen Type: PLASMA Comment: No hemolysis noted. Ordering Provider: RITESH TELLO Report Released Date/Time: Jul 27, 2024 08:35 AM Reporting Lab: [facility]1 [place] [address] Performing Lab: [facility] HGA1C HEMOGLOBIN A1C/HEMOGLO BIN.TOTAL IN BLOOD 5.9 4.0 - 6.0 07/27 Specimen Type: BLOOD No comment entered. Ordering Provider: RITESH TELLO Report Released Date/Time: Jul 27, 2024 08:35 AM Reporting Lab: [facility] [place] [address] Performing Lab: [facility] LIPID PANEL (STL) CHOLESTEROL [MASS/VOLUM E] IN SERUM OR PLASMA 166 mg/dL 0 - 200 02/02 Specimen Type: PLASMA Comment: No hemolysis noted. Ordering Provider: Uzma GONZALEZ Report Released Date/Time: February 03, 2024 10:09 AM Reporting Lab: [facility]1 [place] [address] Performing Lab: [facility] [address] LIPID PANEL (STL) TRIGLYCERID E [MASS/VOLUM E] IN SERUM OR PLASMA 120 mg/dL 0 - 150 02/02 Specimen Type: PLASMA Comment: No hemolysis noted. Ordering Provider: Uzma GONZALEZ Report Released Date/Time: February 03, 2024 10:09 AM Reporting Lab: [facility]1 [place] [address] Performing Lab: [facility]1 [facility] [address] [facility] LIPID PANEL (STL) CHOLESTEROL IN LDL [MASS/VOLUM E] IN SERUM OR PLASMA BY CALCULATION 91 mg/dL 02/02 Specimen Type: PLASMA Comment: No hemolysis noted. Ordering Provider: Uzma GONZALEZ Report Released Date/Time: February 03, 2024 10:09 AM Reporting Lab: [facility] [address] Performing Lab: [facility]1 [facility] [id number] LIPID PANEL (STL) CHOLESTEROL IN HDL [MASS/VOLUM E] IN SERUM OR PLASMA 51 mg/dL 40 02/02 Specimen Type: PLASMA Comment: No hemolysis noted. Ordering Provider: Uzma GONZALEZ Report Released Date/Time: February 03, 2024 10:09 AM Reporting Lab: [facility] [address] Performing Lab: [facility]1 [facility] [id number] [place] [address] Encounters Combined list of: 1) Encounters from Department of [facility] Affairs facilities going backup to the last 18 months, not all [place] inpatient encounters are included; 2) Encounters from the Department of [facility] facilities going backup to 280 months. Location Location Details Encounter Type Encounter Number Reason For Visit Attending Provider ADM Date DC Date Status Disposition Source [facility] Outpatient Encounter [id number] DAVID DIAZ 12/25 [facility] Outpatient Encounter [id number] 12/25 [facility] Outpatient Encounter [id number] DEVI ROMERO 02/01 [facility] Outpatient Encounter [id number] 02/02 [facility] IMG RTA DETCJ/MNTR DS STAFF [id number] Diagnos is: ICD-10- CM Z13.5 Encount er for screeni ng for eye and ear disorde rs ANN RAZA 02/02 [facility] OFFICE O/P EST MOD 30 MIN [id number] Diagnos is: ICD-10- CM E11.9 Type 2 diabete s mellitu s without complic ations MARC GONZALEZ 02/02 [facility] Outpatient Encounter [id number] Diagnos is: ICD-10- CM Z13.5 Encount er for screeni ng for eye and ear disorde Uzma Carrera 02/02 [facility] DENTAL BITEWING FOUR IMAGES [id number] Diagnos is: ICD-10- CM Z01.20 Encount er for dental exam and cleanin g w/o abnorma l finding s ALEKSANDAR RANDALL 02/08 [facility] MTMS BY PHARM EST 15 MIN [id number] Diagnos is: ICD-10- CM E11.9 Type 2 diabete s mellitu s without complic ations MARVA TELLO E 03/02 [facility] INTRM OPH EXAM EST PATIENT [id number] Diagnos is: ICD-10- CM H04.123 Dry eye syndrom e of bilater al lacrima l glands AMADEO ALANIZ THI 03/11 [facility] MTMS BY PHARM EST 15 MIN [id number] Diagnos is: ICD-10- CM E11.9 Type 2 diabete s mellitu s without complic ations MARVA TELLO TIE E 04/06 [facility] Outpatient Encounter [id number] 04/07 [facility] Outpatient Encounter [id number] AMADEO ALANIZ [facility] 04/09 [facility] Outpatient Encounter [id number] 04/28 [facility] MTMS BY PHARM EST 15 MIN [id number] Diagnos is: ICD-10- CM E11.9 Type 2 diabete s mellitu s without complic ations MARVA TELLO TIE E 05/04 [facility] Outpatient Encounter [id number] 05/05 [facility] Outpatient Encounter [id number] 05/05 [facility] Outpatient Encounter [id number] 05/14 [facility] MTMS BY PHARM EST 15 MIN [id number] Diagnos is: ICD-10- CM E11.9 Type 2 diabete s mellitu s without complic ations MARVA TELLO TIE E 06/21 [facility] Outpatient Encounter [id number] 06/24 [facility] Outpatient Encounter [id number] 07/28 [facility] Outpatient Encounter [id number] Diagnos is: ICD-10- CM I10 Essenti al (primar y) hyperte nsion FAB MÉNDEZ D 07/28 [facility] PSYTX W PT 30 MINUTES [id number] Diagnos is: ICD-10- CM Z63.0 Problem s in relatio nship with spouse or partner MARIEJOHN WILKINS TAURUS E 08/09 [facility] PSYTX W PT 60 MINUTES [id number] Diagnos is: ICD-10- CM F33.1 Major depress akhil disorde r, recurre nt, moderat e MEGHAN MILLIGAN M 08/24 [facility] Outpatient Encounter [id number] MEGHAN MILLIGAN M 08/24 [facility] PSYTX W PT 60 MINUTES [id number] Diagnos is: ICD-10- CM Z63.0 Problem s in relatio nship with spouse or partner MEGHAN MILLIGAN M 10/04 [facility] PSYTX W PT 60 MINUTES [id number] Diagnos is: ICD-10- CM F32.A Depress ion, MEGHAN Olvera 10/14 [facility] PSYTX W PT 60 MINUTES [id number] Diagnos is: ICD-10- CM F32.A Depress ion, MEGHAN Olvera 10/21 [facility] Outpatient Encounter [id number] 11/05 [facility] PSYTX W PT 60 MINUTES [id number] Diagnos is: ICD-10- CM F32.A Depress ionarlene JE NNIFER M 11/12 [facility] Outpatient Encounter [id number] 11/17 [facility] Outpatient Encounter [id number] 11/18 [facility] Outpatient Encounter [id number] 11/19 [facility] PSYTX W PT 30 MINUTES [id number] Diagnos is: ICD-10- CM F32.A Depress ionarlene JE NNIFER M 11/25 [facility] PSYTX W PT 30 MINUTES [id number] Diagnos is: ICD-10- CM F32.A Depress ionarlene JE NNIFER M 12/09 [facility] Outpatient Encounter [id number] 12/20 [facility] PSYTX W PT 60 MINUTES [id number] Diagnos is: ICD-10- CM Z63.0 Problem s in relatio nship with spouse or partner MEGHAN MILLIGAN M 01/03 [facility] Outpatient Encounter [id number] 02/01 [facility] Outpatient Encounter [id number] YULIANA TORRES S 02/04 [facility] Outpatient Encounter [id number] MEGHAN MILLIGAN M 02/08 [facility] Outpatient Encounter [id number] 02/18 [facility] Outpatient Encounter [id number] 02/24 [facility] Procedures Combined list of: 1) Procedures from Department of Veterans Affairs facilities going back up to thelast 18 months, not all VA non-surgical procedures are included; 2) All procedures from the Department of Defense facilities. Procedure Procedure Type Code Date Perfomer Comments Anastacio montiel AUDIOMETRIC TESTING OF GROUPS 11/30/2002 [facility] DETERMINATION OF REFRACTIVE STATE 11/10/2002 [facility] Social History Combined list of available smoking, tobacco, and other social history from Department of Defense and Veterans Affairs facilities. Social History Type Response Date Comment Anastacio montiel Tobacco smoking status MEIS VA-TOBACCO USE WI 30 MIN OF WAKEUP 02/03/2024 [facility] History of tobacco use VA-TOBACCO USE 30 YEARS OR MORE 02/03/2024 [facility] History of tobacco use VA-TOBACCO USER E VERY DAY 10/11/2022 [facility] History of tobacco use VA-TOBACCO USER E VERY DAY 03/12/2021 [facility] History of tobacco use VA-TOBACCO USE CO UNSEL NO 10/06/2019 [facility] History of tobacco use VA-TOBACCO USER E VERY DAY 08/24/2018 [facility] History of tobacco use TOBACCO USER OFFE RED MEDS 08/04/2017 [facility] History of tobacco use CURRENT TOBACCO USER 04/16/2017 [facility] This section is an empty social history section. [facility] Plan of Care List of future care activities from Department of Veterans Affairs facilities. Additional future care activities may be listed in the Assessment and Plan section. Date/Time Care Activity Care Activity Detail Facili ty 02/25/2025 Consult Order [facility] DENTAL GEN Cons Balancer's Choice [facility]
[2025-03-08 08:04] LABS: Alanine Aminotransferase 19 U/L (6-50); Albumin Level 4.6 g/dL (3.5-5.1); Alkaline Phosphatase 41 U/L (38-126); Anion Gap 9 mmol/L (4-12); Aspartate Amino Transferase 25 U/L (17-59); Bilirubin,Total 0.9 mg/dL (0.2-1.3); Blood Urea Nitrogen 35 mg/dL (9-20); Calcium 9.3 mg/dL (8.4-10.2); Carbon Dioxide 25 mmol/L (22-30); Chloride 103 mmol/L (98-107); Estimated CRCL calculation 94 ml/min; Estimated Glomerular Filt Rate > 60; Glucose 142 mg/dL (65-110); Lipase 83 U/L (23-300); Potassium 3.8 mmol/L (3.4-5.0); Sodium 137 mmol/L (137-145); Total Protein 7.2 g/dL (6.3-8.2)
--- NOTE | 2025-03-08 09:03 | ED_ITS ---
HPI - General Adult General Chief complaint: Abdominal Pain Stated complaint: abd pain, dark stools Time Seen by Provider: 03/08/25 07:47 History of Present Illness HPI narrative: Patient is a 59-year-old gentleman presents emergency department with chief complaint of left lower quadrant pain. Patient reports the last several days of pain in the left lower quadrant reports that today he noticed that he started having black stool with blood in the stool. Patient reports he has prior history of a Meckel's diverticulum and had a bowel perforation with bowel resection. Patient reports he has not had a colonoscopy report that he is not on blood thinners. Related Data Home Medications ?Medication ?Instructions ?Recorded ?Confirmed ?Last Taken ?Type losartan 100 mg tablet 100 mg DAILY 10/02/22 10/02/22 Unknown History Allergies Allergy/AdvReac Type Severity Reaction Status Date / Time No Known Allergies Allergy Mild Verified 03/08/25 07:45 Review of Systems 2 Review of Systems: A 10 system review of systems was completed on the patient and is negative except for what is stated in the HPI. Nursing and ancillary documentation was reviewed. Exam 2 Narrative: GENERAL: Well-appearing, well-nourished, and in no acute distress. HEAD: Normocephalic, atraumatic. EYES: PERRLA and EOMI. ENT: Nares clear, no rhinorrhea or epistaxis. Mucous membranes moist. NECK: Supple. CHEST: Clear to auscultation. No respiratory distress. HEART: Regular rate and rhythm. No murmur heard. Normal peripheral pulses. ABDOMEN: Soft, nontender, nondistended, normal active bowel sounds. : Black stool that is guaiac positive EXTREMITIES: Normal range of motion. No edema. SKIN: Warm, dry, no rash. NEURO: No focal deficits. Alert and oriented x3. PSYCH: Normal mood and affect. Course Vital Signs Vital signs: Vital Signs Temperature 36.6 C 03/08/25 07:40 Pulse Rate 93 03/08/25 07:40 Respiratory Rate 18 03/08/25 07:40 Blood Pressure 123/78 03/08/25 07:40 Pulse Oximetry 97 03/08/25 07:40 Oxygen Delivery Room Air 03/08/25 07:40 Temperature 36.6 C 03/08/25 07:40 Pulse Rate 80 03/08/25 09:31 Respiratory Rate 17 03/08/25 09:31 Blood Pressure 115/81 03/08/25 09:31 Pulse Oximetry 96 03/08/25 09:31 Oxygen Delivery Room Air 03/08/25 07:40 Medical Decision Making [facility] Narrative Medical decision making narrative: Differential diagnosis includes GI bleed, diverticulitis, colitis, CT scan showed no acute abnormality Laboratory studies showed a hemoglobin of 14.1 electrolytes are within normal limits BUN was slightly elevated 35 creatinine 0.7 The case was discussed with GI who will consult on the patient the patient for observation Vital Signs Vital Signs: Vital Signs Temperature 36.6 C 03/08/25 07:40 Pulse Rate 93 03/08/25 07:40 Respiratory Rate 18 03/08/25 07:40 Blood Pressure 123/78 03/08/25 07:40 Pulse Oximetry 97 03/08/25 07:40 Oxygen Delivery Room Air 03/08/25 07:40 Temperature 36.6 C 03/08/25 07:40 Pulse Rate 80 03/08/25 09:31 Respiratory Rate 17 03/08/25 09:31 Blood Pressure 115/81 03/08/25 09:31 Pulse Oximetry 96 03/08/25 09:31 Oxygen Delivery Room Air 03/08/25 07:40 Lab Data 03/08/25 07:47 03/08/25 07:47 Labs: Lab Results 03/08/25 03/08/25 03/08/25 Range/Units 07:46 07:47 09:00 WBC 10.5 H (4.5-10.0) K/mm3 RBC 4.76 (4.6-6.20) M/mm3 Hgb 14.1 (14.0-18.0) g/dL Hct 41.6 L (42.0-52.0) % MCV 87.4 (80-100) fl MCH 29.6 (26-34) pg MCHC 33.9 (32-36) g/dl RDW 12.4 (11.5-14.5) % Plt Count 234 (150-375) k/mm3 MPV 10.1 (7.4-10.4) fl Immature Gran % (Auto) 0.4 (0-0.5) % Neut % (Auto) 52.9 (45.5-73.1) % Lymph % (Auto) 35.2 (18.3-44.2) % [place] % (Auto) 8.8 H (2.6-8.5) % Eos % (Auto) 2.0 (0-4.4) % Baso % (Auto) 0.7 (0.2-1.2) % Lymph # (Auto) 3.69 H (0.9-3.2) K/mm3 [place] # (Auto) 0.9 H (0.1-0.6) K/mm3 Eos # (Auto) 0.2 (0-0.3) K/mm3 Baso # (Auto) 0.1 (0.0-0.1) K/mm3 Abs Immat Gran (auto) 0.04 H (0.00-0.031) K/mm3 Absolute Neuts (auto) 5.6 (1.3-6.7) K/mm3 Absolute Nucleated RBC 0.000 (0.0-0.012) K/mm3 Nucleated RBC % 0.0 (0.0-0.2) % Sodium 137 (137-145) mmol/L Potassium 3.8 (3.4-5.0) mmol/L Chloride 103 (98-107) mmol/L Carbon Dioxide 25 (22-30) mmol/L Anion Gap 9 (4-12) mmol/L BUN 35 H (9-20) mg/dL Creatinine 0.79 (0.7-1.3) mg/dL Estim Creat Clear Calc 94 ml/min Estimated GFR > 60 (59 - ) Glucose 142 H (65-110) mg/dL Calcium 9.3 (8.4-10.2) mg/dL Total Bilirubin 0.9 (0.2-1.3) mg/dL AST 25 (17-59) U/L ALT 19 (6-50) U/L Alkaline Phosphatase 41 (38-126) U/L Total Protein 7.2 (6.3-8.2) g/dL Albumin 4.6 (3.5-5.1) g/dL Lipase 83 (23-300) U/L Urine Color Yellow (Yellow) Urine Appearance Clear (Clear) Urine pH 6.5 (5.0-9.0) Ur Specific [place] > 1.045 H (1.001-1.035) Urine Protein Trace (Negative) mg/dL Urine Glucose (UA) 3+ H (Negative) mg/dL Urine Ketones Negative (Negative) mg/dL Ur Blood (Man) Negative (Negative) Urine Nitrate Negative (Negative) Urine Bilirubin Negative (Negative) Urine Urobilinogen 1.0 (<2.0) mg/dL Add Ur Microanalysis Reviewed Leukocyte Esterase Rfl Negative (Negative) ANA/UL Urine RBC 0-2 (0-2) /hpf Urine WBC 0-5 (0-3) /hpf Ur Squamous Epith Cells None seen (Few) /hpf Urine Bacteria None seen /hpf Urine Casts 0-2 Blood Type A Positive Antibody Screen Negative Discharge Plan Discharge Clinical Impression: GI bleed Patient Disposition: Still a Patient Condition: Stable Patient Language: Amharic Prescriptions: No Action losartan 100 mg Tablet 100 mg DAILY Follow-up/Referrals: [facility] [Primary Care Provider] - Time of Disposition: 09:54
[2025-03-08 09:20] LABS: Add Urine Microscopic? YES; Appearance Urine Clear (Clear); Bacteria Urine None Seen /hpf; Bilirubin Urine Negative (Negative); Blood Urine Negative (Negative); Color Urine Yellow (Yellow); Glucose Urine UA 3+ mg/dL (Negative); Ketones Urine Negative (Negative); Leukocyte Esterase Ur Negative LEU/UL (Negative); Need Manual Microscopic Reviewed; Nitrate Urine Negative (Negative); Non Pathogenic Casts 0-2; Protein Urine Trace mg/dL (Negative); RBC Urine 0-2 /hpf (0-2); Specific Grav Ur > 1.045 (1.001-1.035); Squamous Epithelial Cell Urine None Seen /hpf (Few); WBC Urine 0-5 /hpf (0-3); pH Urine 6.5 (5.0-9.0)
[2025-03-08] MEDS: PANTOPRAZOLE SODIUM IV 40 MG VIAL IV PUSH ×2 (10:08→22:14)
[2025-03-08] MEDS: SODIUM CHLORIDE 0.9% IV 1,000 ML 125 ML IV CONT ×2 (10:16→17:45)
--- NOTE | 2025-03-08 11:12 | PC.NURSE ---
This patient, Rio Lucio, was admitted to 3 [facility] Surg Room 305-01. Patient/family oriented to hospital policies and general routines including ID bracelet, bed and alarms, visiting hours, pain management, procedures, bathroom and other care routines, personal items, smoking policy, room service/diet, and visiting hours. Information on how to activate the Rapid Response Team has been discussed. Patient/Family are encouraged to report perceived risks to care and to ask questions if they do not understand what they are told or what they should do.
[2025-03-08 12:30] LABS: Hematocrit 37.9 % (42.0-52.0); Hemoglobin 12.9 g/dL (14.0-18.0)
--- NOTE | 2025-03-08 13:42 | P.HP_ITS ---
H&P: HPI History of Present Illness Date/Time: 03/08/25 13:42 Chief Complaint: Dark stool Narrative: Patient is a 59-year-old gentleman presents emergency department with chief complaint of epigastric pain. This has been ongoing for past few days. This a.m. he started having dark stool. He denies any lightheadedness dizziness. He has a history of Meckel's diverticulum with bowel perforation needing bowel r esection in the past. He is not on any blood thinners. There is associated mild nausea. No vomiting or diarrhea. On ED evaluation vitals were stable. Laboratory workup revealed WBC of 10.5 a hemoglobin of 14 platelet of 234 Chem panel was unremarkable. Urinalysis negative for infection. CT abdomen pelvis was performed which showed no significant abnormalities. Review of Systems Review of Systems: - CONSTITUTIONAL: Denies weight loss, fe mirian and chills. - HEENT: Denies changes in vision and he aring - RESPIRATORY: Denies SOB and cough. - CV: Denies palpitations and CP. - GI: Reports abdominal pain, nausea, d enies vomiting and diarrhea. - : Denies dysuria and urinary frequen cy. - MSK: Denies myalgia and joint pain. - SKIN: Denies rash and pruritus. - NEUROLOGICAL: Denies headache and sync ope. - PSYCHIATRIC: Denies recent changes in mood. Denies anxiety and depression. [facility] Social History Social History Smoking status: Never smoker Alcohol intake: current Drinks per week: 1 Substance use: current Substance use type: does not use Do You Feel Safe in your Home?: Yes Lack of Transportation: No Lack of Food: Never True Current Housing: I Have Housing Concerned About Future Housing: No Difficulty Paying Gas/Electric Bills: No Difficulty Paying for Meds: No Currently Unemployed: No Education: Decline to Answer Difficulty w/ Childcare or Family Care: No Spiritual care concerns: No Meds Home Medications and Allergies Home Medications ?Medication ?Instructions ?Recorded ?Confirmed ?Type amlodipine 10 mg tablet 10 mg PO DAILY 03/08/25 03/08/25 History aspirin 81 mg chewable tablet 81 mg PO DAILY 03/08/25 03/08/25 History (Lyubov Chewable Low Dose Aspirin) empagliflozin 10 mg tablet 10 mg PO DAILY 03/08/25 03/08/25 History (Jardiance) losartan 100 1 tablet PO DAILY 03/08/25 03/08/25 History mg-hydrochlorothiazide 12.5 mg tablet (Hyzaar) metformin 1,000 mg tablet 1,000 mg PO BID 03/08/25 03/08/25 History pravastatin 20 mg tablet 20 mg PO DAILY 03/08/25 03/08/25 History Allergies Allergy/AdvReac Type Severity Reaction Status Date / Time No Known Allergies Allergy Mild Verified 03/08/25 07:45 Vital Signs Vital Signs - 24 hr 03/08/25 07:40 03/08/25 07:46 03/08/25 08:01 Temperature 97.8 F Pulse Rate 93 93 91 Respiratory Rate 18 16 15 Blood Pressure 123/78 120/81 122/81 Pulse Oximetry 97 97 100 Oxygen Delivery Room Air 03/08/25 08:38 03/08/25 09:31 03/08/25 10:01 Temperature Pulse Rate 83 80 77 Respiratory Rate 20 17 17 Blood Pressure 115/99 H 115/81 121/82 Pulse Oximetry 100 96 98 Oxygen Delivery Exam Narrative: GENERAL: Well-appearing, well-nourished, and in no acute distress. HEAD: Normocephalic, atraumatic. EYES: PERRLA and EOMI. ENT: Nares clear, no rhinorrhea or epistaxis. Mucous membranes moist. NECK: Supple. CHEST: Clear to auscultation. No respiratory distress. HEART: Regular rate and rhythm. No murmur heard. Normal peripheral pulses. ABDOMEN: Soft, mild epigastric tenderness, nondistended, normal active bowel sounds. EXTREMITIES: Normal range of motion. No edema. SKIN: Warm, dry, no rash. NEURO: No focal deficits. Alert and oriented x3. PSYCH: Normal mood and affect. H&P: Results Labs Labs: Short CBC 03/08/25 03/08/25 Range/Units 07:47 12:25 WBC 10.5 H (4.5-10.0) K/mm3 Hgb 14.1 12.9 L (14.0-18.0) g/dL Hct 41.6 L 37.9 L (42.0-52.0) % Plt Count 234 (150-375) k/mm3 [facility] 03/08/25 07:47 Sodium 137 Potassium 3.8 Chloride 103 Carbon Dioxide 25 BUN 35 H Creatinine 0.79 Glucose 142 H Calcium 9.3 Liver Function 03/08/25 Range/Units 07:47 Total Bilirubin 0.9 (0.2-1.3) mg/dL AST 25 (17-59) U/L ALT 19 (6-50) U/L Alkaline Phosphatase 41 (38-126) U/L Albumin 4.6 (3.5-5.1) g/dL Urine 03/08/25 Range/Units 09:00 Urine Color Yellow (Yellow) Urine Appearance Clear (Clear) Urine pH 6.5 (5.0-9.0) Ur Specific [place] > 1.045 H (1.001-1.035) Urine Protein Trace (Negative) mg/dL Urine Glucose (UA) 3+ H (Negative) mg/dL Assessment and Plan Assessment and plan (1) GI bleed: Code(s): K92.2 - Gastrointestinal hemorrhage, unspecified Status: Acute Plan Patient is a 59-year-old gentleman presents emergency department with chief complaint of epigastric pain. This has been ongoing for past few days. This a.m. he started having dark stool. He denies any lightheadedness dizziness. He has a history of Meckel's diverticulum with bowel perforation needing bowel resection in the past. He is not on any blood thinners.There is associated mild nausea. No vomiting or diarrhea. On ED evaluation vitals were stable. Laboratory workup revealed WBC of 10.5 a hemoglobin of 14 platelet of 234 Chem panel was unremarkable. Urinalysis negative for infection. CT abdomen pelvis was performed which showed no significant abnormalities. Abdominal pain Melena H&H stable continue to monitor. Protonix IV. GI consulted. History of Meckel's diverticulum perforation needing bowel resection in the past Hypertension hold blood pressure medication Hyperlipidemia pravastatin Diabetes type 2 on oral agents. Start SSI. Hold MAXIMILIAN DVT prophylaxis SCDs Code status full code Hospitalist MIPS Advance Care Plan I have confirmed that the patient's Advanced Care Plan is present, code status is documented, or surrogate decision maker is listed in patient medical record.: Yes Medication Reconciliation I have utilized all available resources to obtain, update and review the patients current medications (includes all prescriptions, OTC, herbals, cannabis, and nutritional supplements).: Yes
[2025-03-08 15:34] LABS: Hemoglobin A1C 5.8 % (<5.7)
[2025-03-08 16:40] LABS: Glucose Point of Care 84 mg/dl (65-105)
--- NOTE | 2025-03-08 16:45 | WPDGICN ---
Assessment and Plan Assessment and plan (1) GI bleed: Code(s): K92.2 - Gastrointestinal hemorrhage, unspecified Status: Acute Assessment and Plan: wonder if could have ulcer, avm, etc will do EGD tomorrow monitor for more signs of bleeding iv protonix (2) Melena: Code(s): K92.1 - Melena Status: Acute Assessment and Plan: egd tomorrow never had colonoscopy and we can arrange one as outpatient (3) Acute blood loss anemia: Code(s): D62 - Acute posthemorrhagic anemia Status: Acute Assessment and Plan: drop h/h and elevated bun indicated most likely upper gi source ct scan reviewed (4) Nausea: Code(s): R11.0 - Nausea Status: Acute (5) Epigastric pain: Code(s): R10.13 - Epigastric pain Status: Acute (6) Lack of appetite: Code(s): R63.0 - Anorexia Status: Acute GI Consult Note Consult date/time: 03/08/25 16:45 Reason for consult: melena, abdominal pain HPI: Rio Lucio is a 59 year old male with Meckel's diverticulum surgery 33 years ago, HTN and DM who started with pain day after returning from boat trip. He has been experiencing intermittent gurgling discomfort in abdomen and also lack of appetite but worsened and yesterday also noted new onset dark stool x2 with nausea. Never had scopes. Laboratory workup revealed WBC of 10.5 a hemoglobin of 14 repeat down 12.9, platelet of 234 BUN elevated, normal creatinine. Urinalysis negative for infection. CT abdomen pelvis was performed which showed no significant abnormalities. No nsaid's, no blood thinner. Review of Systems Constitutional: Constitutional: Denies chills Eyes: Eyes: Denies blurry vision ENT: Reports Normal hearing present Cardiovascular: Cardiovascular: Denies chest pain Respiratory: Respiratory: Denies cough Gastrointestinal: Gastrointestinal: Reports abdominal pain, Reports melena and Reports nausea Genitourinary: Genitourinary: Denies dysuria Musculoskeletal: Musculoskeletal: Denies neck pain Integumentary/Breasts: Skin/Breast: Denies rash Neurologic: Denies Abnormal speech present Psychiatric: Psychiatric: Denies behavioral changes [facility] Past Medical History Medical History (Updated 03/08/25 @ 16:51 by Smooth Brody MD) Lack of appetite Epigastric pain Nausea Acute blood loss anemia Melena Social History Social History Smoking status: Never smoker Alcohol intake: current Drinks per week: 1 Substance use: current Substance use type: does not use Do You Feel Safe in your Home?: Yes Lack of Transportation: No Lack of Food: Never True Current Housing: I Have Housing Concerned About Future Housing: No Difficulty Paying Gas/Electric Bills: No Difficulty Paying for Meds: No Currently Unemployed: No Education: Decline to Answer Difficulty w/ Childcare or Family Care: No Spiritual care concerns: No Meds Home Medications and Allergies Home Medications ?Medication ?Instructions ?Recorded ?Confirmed ?Type amlodipine 10 mg tablet 10 mg PO DAILY 03/08/25 03/08/25 History aspirin 81 mg chewable tablet 81 mg PO DAILY 03/08/25 03/08/25 History (Lyubov Chewable Low Dose Aspirin) empagliflozin 10 mg tablet 10 mg PO DAILY 03/08/25 03/08/25 History (Jardiance) losartan 100 1 tablet PO DAILY 03/08/25 03/08/25 History mg-hydrochlorothiazide 12.5 mg tablet (Hyzaar) metformin 1,000 mg tablet 1,000 mg PO BID 03/08/25 03/08/25 History pravastatin 20 mg tablet 20 mg PO DAILY 03/08/25 03/08/25 History Allergies Allergy/AdvReac Type Severity Reaction Status Date / Time No Known Allergies Allergy Mild Verified 03/08/25 07:45 Vital Signs Vital Signs - 24 hr 03/08/25 07:40 03/08/25 07:46 03/08/25 08:01 Temperature 97.8 F Pulse Rate 93 93 91 Respiratory Rate 18 16 15 Blood Pressure 123/78 120/81 122/81 Pulse Oximetry 97 97 100 Oxygen Delivery Room Air 03/08/25 08:38 03/08/25 09:31 03/08/25 10:01 Temperature Pulse Rate 83 80 77 Respiratory Rate 20 17 17 Blood Pressure 115/99 H 115/81 121/82 Pulse Oximetry 100 96 98 Oxygen Delivery 03/08/25 14:00 Temperature 97.6 F Pulse Rate 80 Respiratory Rate 18 Blood Pressure 116/65 Pulse Oximetry 97 Oxygen Delivery Exam Const: General: comfortable and no acute distress HENMT: Face/Nose/Sinus: Normal nares present Eyes: General: appearance normal, both eyes and all related structures Neck: Neck: supple Resp: Auscultation: clear to auscultation bilaterally Cardio: Rate: regular rate Rhythm: regular rhythm GI: Inspection: non-distended GI Palp: Yes Soft to palpation and No Guarding due to palpation present (GI) Auscultation: normal bowel sounds Other: minimal ttp, no rebound Skin: General skin exam: normal color Neuro: General: gait normal Speech: normal speech Extrem: General: normal to inspection Psych: Mental Status: mental status grossly normal Results Labs 03/08/25 12:25 03/08/25 07:47 Labs: Short CBC 03/08/25 03/08/25 Range/Units 07:47 12:25 WBC 10.5 H (4.5-10.0) K/mm3 Hgb 14.1 12.9 L (14.0-18.0) g/dL Hct 41.6 L 37.9 L (42.0-52.0) % Plt Count 234 (150-375) k/mm3 BMP 03/08/25 07:47 Sodium 137 Potassium 3.8 Chloride 103 Carbon Dioxide 25 BUN 35 H Creatinine 0.79 Glucose 142 H Calcium 9.3 Liver Function 03/08/25 Range/Units 07:47 Total Bilirubin 0.9 (0.2-1.3) mg/dL AST 25 (17-59) U/L ALT 19 (6-50) U/L Alkaline Phosphatase 41 (38-126) U/L Albumin 4.6 (3.5-5.1) g/dL Urine 03/08/25 Range/Units 09:00 Urine Color Yellow (Yellow) Urine Appearance Clear (Clear) Urine pH 6.5 (5.0-9.0) Ur Specific [place] > 1.045 H (1.001-1.035) Urine Protein Trace (Negative) mg/dL Urine Glucose (UA) 3+ H (Negative) mg/dL
[2025-03-08 18:32] LABS: Hematocrit 37.6 % (42.0-52.0); Hemoglobin 12.6 g/dL (14.0-18.0)
[2025-03-09] VITALS (7 sets, daily range): BP systolic 96–129; BP diastolic 53–75; PULSE 64–81; RESP 14–21; TEMP 35.9–37.1; O2SAT 94–100
[2025-03-09 00:24] LABS: Glucose Point of Care 107 mg/dl (65-105)
[2025-03-09 01:23] LABS: Hematocrit 34.8 % (42.0-52.0); Hemoglobin 11.8 g/dL (14.0-18.0)
[2025-03-09 05:51] LABS: Glucose Point of Care 102 mg/dl (65-105)
[2025-03-09 06:08] LABS: Basophils Absolute Auto 0.1 K/mm3 (0.0-0.1); Basophils Percent Auto 0.9 % (0.2-1.2); Eosinophils Absolute Auto 0.2 K/mm3 (0-0.3); Eosinophils Percent Auto 3.4 % (0-4.4); Hematocrit 34.9 % (42.0-52.0); Hemoglobin 11.7 g/dL (14.0-18.0); Immature Granulocyte Absolute 0.02 K/mm3 (0.00-0.031); Immature Granulocyte Percent A 0.3 % (0-0.5); Lymphocytes Absolute Auto 2.78 K/mm3 (0.9-3.2); Lymphocytes Percent Auto 41.7 % (18.3-44.2); Mean Corpuscular HGB Conc 33.5 g/dl (32-36); Mean Corpuscular Volume 89.5 fl (80-100); Mean Platelet Volume 10.2 fl (7.4-10.4); Monocytes Absolute Auto 0.6 K/mm3 (0.1-0.6); Monocytes Percent Auto 8.4 % (2.6-8.5); Neutrophils Percent Auto 45.3 % (45.5-73.1); Platelet Count Result 176 k/mm3 (150-375); Red Cell Distribution Width 12.4 % (11.5-14.5); White Blood Count 6.7 K/mm3 (4.5-10.0)
[2025-03-09 06:35] LABS: Alanine Aminotransferase 14 U/L (6-50); Albumin Level 3.7 g/dL (3.5-5.1); Alkaline Phosphatase 32 U/L (38-126); Anion Gap 6 mmol/L (4-12); Aspartate Amino Transferase 23 U/L (17-59); Bilirubin,Total 0.6 mg/dL (0.2-1.3); Blood Urea Nitrogen 26 mg/dL (9-20); Calcium 8.9 mg/dL (8.4-10.2); Carbon Dioxide 23 mmol/L (22-30); Chloride 106 mmol/L (98-107); Estimated CRCL calculation 97 ml/min; Estimated Glomerular Filt Rate > 60; Glucose 94 mg/dL (65-110); Magnesium 2.2 mg/dL (1.6-2.3); Potassium 4.1 mmol/L (3.4-5.0); Sodium 135 mmol/L (137-145); Total Protein 5.7 g/dL (6.3-8.2)
[2025-03-09] MEDS: PANTOPRAZOLE SODIUM IV 40 MG VIAL IV PUSH (09:06)
--- NOTE | 2025-03-09 10:27 | P.PNIM_ITS ---
Progress Note: A&P Assessment and Plan (1) GI bleed: Code(s): K92.2 - Gastrointestinal hemorrhage, unspecified Status: Acute Assessment and Plan: * Dark stool today. * Add Stool for occult blood. * GI consult, appreciate recommendations. * NPO for EGD today. * Pantoprazole 40 mg IVP q 12. * LR @ 150 ml/hr. Subjective Date/time seen: 03/09/25 10:27 Interval history: Patient denies ches pain, palpitations, headache, dizziness, nausea, or vomiting. Patient reports black stool that was soft ribbon like today. NPO for EGD today. Review of Systems Review of Systems: All systems reviewed & are unremarkable except as noted in HPI and below Exam Const: General: comfortable and no acute distress Resp: Effort & Inspection: normal respiratory effort Auscultation: clear to auscultation bilaterally Cardio: Rate: regular rate Rhythm: regular rhythm GI: GI Palp: Yes Soft to palpation Auscultation: normal bowel sounds Neuro: Speech: normal speech Extrem: General: no pedal edema Psych: Mental Status: mental status grossly normal Affect: normal affect Objective Data Vital Signs Vital Signs: Vital Signs - 24 hr 03/08/25 14:00 03/08/25 20:00 03/08/25 22:00 Temperature 97.6 F 97.3 F L Pulse Rate 80 72 Respiratory Rate 18 18 Blood Pressure 116/65 117/65 Pulse Oximetry 97 96 96 Oxygen Delivery Room Air 03/09/25 06:00 Temperature 98.8 F Pulse Rate 69 Respiratory Rate 18 Blood Pressure 102/53 L Pulse Oximetry 94 Oxygen Delivery Intake/Output Intake/Output: Intake & Output 03/06/25 03/07/25 03/08/25 03/09/25 23:59 23:59 23:59 23:59 Intake Total 1935.4 200 Balance 1935.4 200 Meds/Results Medications: Active Medications Generic Name Dose Route Start Last Admin Trade Name Freq PRN Reason Stop Dose Admin Dextrose 12.5 gm 03/08/25 13:46 Dextrose 50% 25 Gm/50 Ml Syringe IV PUSH PRN PRN Hypoglycemia Protocol Glucagon 1 mg 03/08/25 13:46 Glucagon For Inj 1 Mg Vial IM PRN PRN Hypoglycemia Protocol Glucose 15 gm 03/08/25 13:46 Glucose Oral Gel 15 Gm Of Glucse In 37.5 Gm Tube PO PRN PRN Hypoglycemia Protocol Sodium Chloride 1,000 mls @ 125 mls/hr 03/08/25 09:50 03/08/25 17:45 Normal Saline Iv IV CONT 125 mls/hr .Q8H BROOKE Administration Dextrose 1,000 mls @ 100 mls/hr 03/08/25 13:46 Dextrose 5% 1,000 Ml IVPB PRN PRN Hypoglycemia Protocol Insulin Aspart 2 - 5 units 03/08/25 17:00 03/09/25 09:00 Insulin Aspart (*Bkc) 100 Units/Ml SUB-Q Not Given TIDWM BROOKE Protocol Insulin Aspart 1 - 2 units 03/08/25 21:00 03/08/25 22:03 Insulin Aspart (*Bkc) 100 Units/Ml SUB-Q Not Given HS BROOKE Protocol Ondansetron HCl 4 mg 03/08/25 09:50 Ondansetron Inj 4 Mg/2 Ml Vial IV PUSH Q4H PRN Nausea Pantoprazole Sodium 40 mg 03/08/25 21:00 03/09/25 09:06 Pantoprazole Sodium Iv 40 Mg Vial IV PUSH 40 mg Q12H BROOKE Administration Pravastatin Sodium 20 mg 03/09/25 09:00 Pravastatin Sodium 20 Mg Tablet PO DAILY [facility] Radiology Results: ITS Impressions Abdomen/Pelvis CT 03/08/25 08:45 Impression: No significant abnormalities seen. Labs Labs: Laboratory Results - last 24 hr 03/08/25 03/08/25 03/08/25 07:48 12:25 16:37 WBC RBC Hgb 12.9 L Hct 37.9 L MCV MCH MCHC RDW Plt Count MPV Immature Gran % (Auto) Neut % (Auto) Lymph % (Auto) [place] % (Auto) Eos % (Auto) Baso % (Auto) Lymph # (Auto) [place] # (Auto) Eos # (Auto) Baso # (Auto) Abs Immat Gran (auto) Absolute Neuts (auto) Absolute Nucleated RBC Nucleated RBC % Sodium Potassium Chloride Carbon Dioxide Anion Gap BUN Creatinine Estim Creat Clear Calc Estimated GFR Glucose POC Capillary Glucose 84 Hemoglobin A1c 5.8 H Calcium Magnesium Total Bilirubin AST ALT Alkaline Phosphatase Total Protein Albumin 03/08/25 03/09/25 03/09/25 18:21 00:22 00:50 WBC RBC Hgb 12.6 L 11.8 L Hct 37.6 L 34.8 L MCV MCH MCHC RDW Plt Count MPV Immature Gran % (Auto) Neut % (Auto) Lymph % (Auto) [place] % (Auto) Eos % (Auto) Baso % (Auto) Lymph # (Auto) [place] # (Auto) Eos # (Auto) Baso # (Auto) Abs Immat Gran (auto) Absolute Neuts (auto) Absolute Nucleated RBC Nucleated RBC % Sodium Potassium Chloride Carbon Dioxide Anion Gap BUN Creatinine Estim Creat Clear Calc Estimated GFR Glucose POC Capillary Glucose 107 H Hemoglobin A1c Calcium Magnesium Total Bilirubin AST ALT Alkaline Phosphatase Total Protein Albumin 03/09/25 03/09/25 05:35 05:40 WBC 6.7 RBC 3.90 L Hgb 11.7 L Hct 34.9 L MCV 89.5 MCH 30.0 MCHC 33.5 RDW 12.4 Plt Count 176 MPV 10.2 Immature Gran % (Auto) 0.3 Neut % (Auto) 45.3 L Lymph % (Auto) 41.7 [place] % (Auto) 8.4 Eos % (Auto) 3.4 Baso % (Auto) 0.9 Lymph # (Auto) 2.78 [place] # (Auto) 0.6 Eos # (Auto) 0.2 Baso # (Auto) 0.1 Abs Immat Gran (auto) 0.02 Absolute Neuts (auto) 3.0 Absolute Nucleated RBC 0.000 Nucleated RBC % 0.0 Sodium 135 L Potassium 4.1 Chloride 106 Carbon Dioxide 23 Anion Gap 6 BUN 26 H Creatinine 0.77 Estim Creat Clear Calc 97 Estimated GFR > 60 Glucose 94 POC Capillary Glucose 102 Hemoglobin A1c Calcium 8.9 Magnesium 2.2 Total Bilirubin 0.6 AST 23 ALT 14 Alkaline Phosphatase 32 L Total Protein 5.7 L Albumin 3.7 Quality VTE Prophylaxis VTE prophylaxis: mechanical ordered
[2025-03-09 11:43] LABS: Glucose Point of Care 93 mg/dl (65-105)
[2025-03-09] MEDS: LACTATED RINGERS 1,000 ML 150 ML IV CONT ×2 (14:47→15:53)
[2025-03-09 14:51] LABS: Glucose Point of Care 75 mg/dl (65-105)
--- NOTE | 2025-03-09 15:01 | WPDANESEPPF ---
Anes - Initial Pre Proc Eval Procedure: Operation Date: 03/09/25 15:30 Proposed Procedures p Esophagogastroduodenoscopy - Smooth Brody MD Date/Time: 03/09/25 15:01 Surgeon: Ammon Castillo MD Pre Op Diagnosis: GI Bleed Patient Data Age: 59 Gender: M Height: 1.8 m Weight: 89.7 kg Last Vital Signs Temp 96.7 F L 03/09/25 14:44 Pulse 71 03/09/25 14:44 Resp 16 03/09/25 14:44 BP 113/58 L 03/09/25 14:44 Pulse Ox 98 03/09/25 14:44 O2 Del Method Room Air 03/09/25 14:44 Allergies Allergy/AdvReac Type Severity Reaction Status Date / Time No Known Allergies Allergy Mild Verified 03/09/25 14:37 Home Medications ?Medication ?Instructions ?Recorded ?Confirmed ?Type amlodipine 10 mg tablet 10 mg PO DAILY 03/08/25 03/08/25 History aspirin 81 mg chewable tablet 81 mg PO DAILY 03/08/25 03/08/25 History (Lyubov Chewable Low Dose Aspirin) empagliflozin 10 mg tablet 10 mg PO DAILY 03/08/25 03/08/25 History (Jardiance) losartan 100 1 tablet PO DAILY 03/08/25 03/08/25 History mg-hydrochlorothiazide 12.5 mg tablet (Hyzaar) metformin 1,000 mg tablet 1,000 mg PO BID 03/08/25 03/08/25 History pravastatin 20 mg tablet 20 mg PO DAILY 03/08/25 03/08/25 History Laboratory Tests 03/08/25 03/08/25 03/08/25 07:48 16:37 18:21 WBC RBC Hgb 12.6 L g/dL (14.0-18.0) Hct 37.6 L % (42.0-52.0) MCV MCH MCHC RDW Plt Count MPV Immature Gran % (Auto) Neut % (Auto) Lymph % (Auto) [place] % (Auto) Eos % (Auto) Baso % (Auto) Lymph # (Auto) [place] # (Auto) Eos # (Auto) Baso # (Auto) Abs Immat Gran (auto) Absolute Neuts (auto) Absolute Nucleated RBC Nucleated RBC % Sodium Potassium Chloride Carbon Dioxide Anion Gap BUN Creatinine Estim Creat Clear Calc Estimated GFR Glucose POC Capillary Glucose 84 mg/dl (65-105) Hemoglobin A1c 5.8 H % (<5.7) Calcium Magnesium Total Bilirubin AST ALT Alkaline Phosphatase Total Protein Albumin 03/09/25 03/09/25 03/09/25 00:22 00:50 05:35 WBC 6.7 K/mm3 (4.5-10.0) RBC 3.90 L M/mm3 (4.6-6.20) Hgb 11.8 L g/dL 11.7 L g/dL (14.0-18.0) (14.0-18.0) Hct 34.8 L % 34.9 L % (42.0-52.0) (42.0-52.0) MCV 89.5 fl (80-100) MCH 30.0 pg (26-34) MCHC 33.5 g/dl (32-36) RDW 12.4 % (11.5-14.5) Plt Count 176 k/mm3 (150-375) MPV 10.2 fl (7.4-10.4) Immature Gran % (Auto) 0.3 % (0-0.5) Neut % (Auto) 45.3 L % (45.5-73.1) Lymph % (Auto) 41.7 % (18.3-44.2) [place] % (Auto) 8.4 % (2.6-8.5) Eos % (Auto) 3.4 % (0-4.4) Baso % (Auto) 0.9 % (0.2-1.2) Lymph # (Auto) 2.78 K/mm3 (0.9-3.2) [place] # (Auto) 0.6 K/mm3 (0.1-0.6) Eos # (Auto) 0.2 K/mm3 (0-0.3) Baso # (Auto) 0.1 K/mm3 (0.0-0.1) Abs Immat Gran (auto) 0.02 K/mm3 (0.00-0.031) Absolute Neuts (auto) 3.0 K/mm3 (1.3-6.7) Absolute Nucleated RBC 0.000 K/mm3 (0.0-0.012) Nucleated RBC % 0.0 % (0.0-0.2) Sodium 135 L mmol/L (137-145) Potassium 4.1 mmol/L (3.4-5.0) Chloride 106 mmol/L (98-107) Carbon Dioxide 23 mmol/L (22-30) Anion Gap 6 mmol/L (4-12) BUN 26 H mg/dL (9-20) Creatinine 0.77 mg/dL (0.7-1.3) Estim Creat Clear Calc 97 ml/min Estimated GFR > 60 (59 - ) Glucose 94 mg/dL (65-110) POC Capillary Glucose 107 H mg/dl (65-105) Hemoglobin A1c Calcium 8.9 mg/dL (8.4-10.2) Magnesium 2.2 mg/dL (1.6-2.3) Total Bilirubin 0.6 mg/dL (0.2-1.3) AST 23 U/L (17-59) ALT 14 U/L (6-50) Alkaline Phosphatase 32 L U/L (38-126) Total Protein 5.7 L g/dL (6.3-8.2) Albumin 3.7 g/dL (3.5-5.1) 03/09/25 03/09/25 03/09/25 05:40 11:40 14:49 WBC RBC Hgb Hct MCV MCH MCHC RDW Plt Count MPV Immature Gran % (Auto) Neut % (Auto) Lymph % (Auto) [place] % (Auto) Eos % (Auto) Baso % (Auto) Lymph # (Auto) [place] # (Auto) Eos # (Auto) Baso # (Auto) Abs Immat Gran (auto) Absolute Neuts (auto) Absolute Nucleated RBC Nucleated RBC % Sodium Potassium Chloride Carbon Dioxide Anion Gap BUN Creatinine Estim Creat Clear Calc Estimated GFR Glucose POC Capillary Glucose 102 mg/dl 93 mg/dl 75 mg/dl (65-105) (65-105) (65-105) Hemoglobin A1c Calcium Magnesium Total Bilirubin AST ALT Alkaline Phosphatase Total Protein Albumin Patient hx anesthesia problems: none Family hx anesthesia problems: none Results Review: All pre-operative results and documents have been reviewed as part of the pre-operative evaluation. [facility] Past Medical History Medical History (Updated 03/08/25 @ 16:51 by Smooth rBody MD) Lack of appetite Epigastric pain Nausea Acute blood loss anemia Melena Social History Social History Smoking status: Never smoker Alcohol intake: current Drinks per week: 1 Substance use: current Substance use type: does not use Do You Feel Safe in your Home?: Yes Lack of Transportation: No Lack of Food: Never True Current Housing: I Have Housing Concerned About Future Housing: No Difficulty Paying Gas/Electric Bills: No Difficulty Paying for Meds: No Currently Unemployed: No Education: Decline to Answer Difficulty w/ Childcare or Family Care: No Spiritual care concerns: No Anes - Eval Final PreProcedure Day of Procedure 03/09/25 15:01 Patient weight: normal Heart: regular rate and rhythm Lungs: clear to auscultation Airway: Mallampati scale class II Neurological: alert and oriented Last oral intake: >/= 8 hours ASA classification: IV Emergent: no Anesthetic plan: proceed Anesthesia type and monitoring: general GIVS and standard monitoring Results Review: All pre-operative results and documents have been reviewed as part of the pre-operative evaluation. Informed Consent: The patient's anesthetic plan and its attendant risks and benefits were discussed with the patient/family/POA. Questions were solicited and answers provided to the satisfaction of the patient/family/POA.
--- NOTE | 2025-03-09 16:02 | S_PTH ---
PATIENT: [place] LOC: [id number] U#:[id number] AGE/SX: 59/M ROOM: 302 RE03/08/[address]: Ammon Castillo MD : 1965 BED: 01 DIS: 03/09/2025 SPEC #: [id number] RECD: 03/10/25 08:41 STATUS: RUBEN RE #: [id number] JOSÉ LUIS: 03/09/25 16:[address]: Smooth Brody DEPT: [facility] Surgical RECD BY: Venessa Klein ENTERED: 03/10/25 08:41 SP TYPE: Surgical OTHR DR: MD Emilia Alvares, FAISAL Castillo MD [facility]FAISAL [place], Tissues: A - Gastric Biopsy B - Gastric Biopsy Procedures: Hematoxylin and Eosin Stain Gross and Microscopic Level 4 H.Pylori
[2025-03-09 16:45] LABS: Glucose Point of Care 70 mg/dl (65-105)
[2025-03-09 17:00] LABS: HPYLORIRESULT Negative (Negative)
--- NOTE | 2025-03-09 18:40 | PC.NURSE ---
On 03/09/25, the WEB ENGINEER, Mandy Randall , provided care and completed [place] documentation on this patient. I have reviewed the WEB ENGINEER's documentation and agree with the findings.
--- NOTE | 2025-03-10 07:12 | P.DS_ITS ---
DS: Admitting Diagnosis Discharge Date 03/09/25 Admitting Diagnosis Dark stool DS: Discharge Diagnosis Discharge Diagnosis (1) Gastric ulcer: Code(s): K25.9 - Gastric ulcer, unspecified as acute or chronic, without hemorrhage or perforation Status: Acute (2) Gastritis: Code(s): K29.70 - Gastritis, unspecified, without bleeding Status: Acute DS: Summary Hospital Course Hospital Course: Patient is a 59 year old male with epigastric pain. ER work up WBC 10.5, hemoglobin 12, UA negative. CT of abdomen no abnormalities seen. GI consulted. EGD done on 03/09 showed a few deep benign ulcers ranging in size from 5 mm to 20 mm were visualized in the body of the stomach and in the antrum (largest one located in body). The ulcers were clean-based without signs of bleeding (Anil III). Multiple biopsies were taken. Severe gastritis was seen in the body of the stomach and antrum. The gastritis had severe erythematous, edematous, erosive and ulcerative changes. There was no mucosal bleeding. Multiple biopsies were taken for pathology and H. pylori. The bulb and the second portion of duodenum was normal with no ulcers or masses. No AVM, no hematin. Discharged on Pantoprazole 40 mg PO BID. Patient to schedule a colonoscopy outpatient. Repeat EGD in 4 months to assess healing. Status at Discharge Functional status at discharge: independent ambulation Time Spent with Patient Time attestation: Total time spent providing and/or coordinating discharge services: Time spent: Greater than 30 minutes Exam Narrative: Exam Const: General: comfortab le and no acute di stress Resp: Effort & Inspectio n: normal respirat ory effort Auscul tation: clear to a uscultation bilate rally Cardio: Rate: regular rate Rhythm: regular rhythm GI: GI Palp: Yes Soft to palpation Ausc ultation: normal b owel sounds Neuro: Speech: normal spe ech Extrem: General: no pedal edema Psych: Mental Status: men nereida status grossly normal Affect: n ormal affect DS: Data Data Completed and Pending Pending studies at discharge: Pending at discharge 03/09/25 16:02 Surgical [PTH] Routine Labs on day of discharge: Labs from last 24 hours 03/09/25 03/09/25 03/09/25 16:56 16:41 14:49 POC Capillary Glucose 70 75 POC H. pylori Urease Negative 03/09/25 11:40 POC Capillary Glucose 93 POC H. pylori Urease Discharge Plan Discharge Attending physician on discharge: Emilia Correia Consulting providers: Smooth Brody; Emilia Correia; Jayden Bishop; Delmis Edwards; Chalo De La Cruz Discharging Clinician: Emilia Correia Anticipated Discharge Date/Time: 03/09/25 18:03 Patient Disposition: Home Activity: january shower Diet: as tolerated Patient Instructions: Peptic Ulcer (DC), Gastritis (DC) Patient Language: Setswana Stand Alone Forms: General Discharge Information, Work/School Release IP Follow-up/Referrals: Smooth Brody MD [Physician] - Other (EGD in 4 months ) Discharge Medications: Continued losartan-hydrochlorothiazide [Hyzaar] 100-12.5 mg tablet 1 tablet PO DAILY metformin 1,000 mg tablet 1,000 mg PO BID aspirin [Lyubov Chewable Aspirin] 81 mg tablet,chewable 81 mg PO DAILY Jardiance 10 mg tablet 10 mg PO DAILY pravastatin 20 mg tablet 20 mg PO DAILY amlodipine 10 mg tablet 10 mg PO DAILY pantoprazole 40 mg tablet,delayed release (DR/EC) 40 mg PO BID Qty: 60 5RF Date of admission: 03/08/25 09:51 Primary Care Provider: [facility] Admitting Provider: Ammon Castillo Attending physician on admission: Ammon Castillo Condition: Stable Hospitalist MIPS Heart Failure (Exclusion) Patient has history of Heart Transplant or Left Ventricular Assistive Device?: No IF YES, STOP HERE Heart Failure (Qualifier) Patient has current or prior documentation of LVEF less than or equal to 40%, or mod/servere depressed LVSF?: No IF NO, STOP HERE
== END 2025-03-09 18:40 | disposition home or self-care (01) ==
LOC: ANHED 09:54 → ANH3MEDSUR 10:19
PROVIDERS: Internal Medicine Gastroenterology; Nurse Practitioner Family; Admitting Provider Internal Medicine; Emergency Provider Emergency Medicine; Visit Provider Internal Medicine
PROC: 0DJ08ZZ Inspection of Upper Intestinal Tract, Via Natural or Artificial Opening Endoscopic (ICD-10-PCS; CPT 43239; principal; 2025-03-09 15:30)
DX: K29.71 Gastritis, unspecified, with bleeding (principal); K25.9 Gastric ulcer, unspecified as acute or chronic, without hemorrhage or perforation; D62 Acute posthemorrhagic anemia; R63.0 Anorexia; I10 Essential (primary) hypertension; E78.5 Hyperlipidemia, unspecified; E11.9 Type 2 diabetes mellitus without complications; Z79.82 Long term (current) use of aspirin; Z79.84 Long term (current) use of oral hypoglycemic drugs; Z79.899 Other long term (current) drug therapy; Z87.19 Personal history of other diseases of the digestive system; Z98.890 Other specified postprocedural states
CPT/HCPCS: 43239; 36415; 74177; 80053; 81001; 82948; 83036; 83690; 83735; 85014; 85018; 85025; 86850; 86900; 86901; 87081; 88305; 88342; 96361; 96374; 96375; 96376; 99285; G0378; J2003; J2470; J2704; J7030; J7120; Q9967